=== PATIENT | female | born 1965 | race Caucasian/White ===

== ENCOUNTER 2018-10-08 01:50 | Outpatient (CLI) | payer BC, SELFPAY ==
--- NOTE | 2018-10-08 15:51 | DI.US_ITS ---
SYMPTOM/DIAGNOSIS: RT THYROID NODULE, E04.1 THYROID ULTRASOUND: The study was carried out according to the usual protocol. The right thyroid lobe measures 4.2 by 1.2 by 1.1 cm. The left thyroid lobe measures 3.6 by 0.9 by 1.1 cm. There is a question regarding a very small colloid cyst involving the right thyroid lobe measuring 3 by 2 by 3 mm. Note is made of no abnormality in the region of the patient's pain and swelling.
[2018-10-08 16:25] LABS: Abs Immature Grans 0.01 k/cumm (0.0-0.09); Absolute Basophil Count 0.03 k/cumm (0.0-0.2); Absolute Eosinophil Count 0.07 k/cumm (0.0-0.7); Absolute Lymphocyte Count 2.21 k/cumm (1.2-3.4); Absolute Monocyte Count 0.52 k/cumm (0.11-0.7); Basophils % 0.5; Eosinophils % 1.1; HGB 13.9 g/dL (12.0-15.5); Immature Grans % 0.2; Mean Corp. HGB Concentration 33.1 g/dL (32.0-36.0); Mean Corpuscular Hemoglobin 29.4 pg (27.0-33.0); Mean Corpuscular Volume 88.8 fL (80-95); Mean Platelet Volume 11.1 fL (8.0-11.0); Monocytes % 8.5; Neutrophils % 53.7; Platelet Count 256 x1000/uL (130-400); RBC 4.73 m/cumm (4.00-5.20); RBC Distribution Width 12.9 % (11.7-14.6); White Blood Cell Count 6.14 k/cumm (4.4-10.8)
[2018-10-08 17:17] LABS: Iron 57 ug/dL (50-175)
[2018-10-08 17:28] LABS: Cholesterol 179 mg/dL (50-200); HDL Cholesterol 65 mg/dL (40-60); LDL CHOLESTEROL 91 mg/dL (<100); TSH (W/Ref FT4) 1.25 uIU/mL (0.358-3.74); Triglyceride 120 mg/dL (30-150)
== END 2018-10-08 02:10 ==
PROVIDERS: PCP Family Medicine; Visit Provider Family Medicine
DX: Z00.00 Encounter for general adult medical examination without abnormal findings (principal); E04.1 Nontoxic single thyroid nodule; D64.9 Anemia, unspecified; R23.8 Other skin changes
CPT/HCPCS: 36415; 80061; 83721; 76536; 83540; 84443; 85025

== ENCOUNTER 2021-06-16 02:40 | Outpatient (CLI) | payer OTHER, SELFPAY ==
--- NOTE | 2021-06-16 12:05 | DI.MAMMO_ITS ---
Exam(s) MAMMO SCREENING EXAM: MAMMO SCREENING CLINICAL HISTORY: screening,Z12.39 TECHNIQUE: Bilateral full field digital CC and MLO mammographic images were obtained with 3D tomosyn thesis and utilizing computer aided detection (CAD). COMPARISON: Available for comparison. FINDINGS: Masses/Architectural Distortion: None seen. Microcalcifications: No suspicious pleomorphic-type are seen. Skin Thickening/Nipple Retraction: None. IMPRESSION: 1. No significant interval change with no specific features of malignancy noted. 2. Unless there is more urgent need, screening mammography is recommended, as per [employer] guidelines. BI-RADS Category 1 - Negative Breast Density - Category C - Heterogeneously dense Breast density category C or D implies that the patient has dense breast tissue. Dense breast tissue is very common and is not abnormal but dense breast tissue can make it harder to find cancer on a ma mmogram. Also, dense breast tissue may increase their breast cancer risk. This information about the result of the mammogram report was provided to the patient to raise their awareness. Use this report when you speak with the patient about their risks for breast cancer, which includes their family hist ory. At that time, you may recommend for more screening tests (Ultrasound or MRI) as they might be us eful based on their risk. A negative radiographic report should not delay biopsy if a dominant or clinically suspicious mass is present. Up to ten percent of cancers are not identified on mammography. A negative report may reinforce clinical impression. Adenosis and dense breasts may obscure an underlying neoplasm. False positive reports average 6 to 10%. Patient will receive a letter notifying them of these results.
== END 2021-06-16 03:00 ==
PROVIDERS: PCP Family Medicine; Visit Provider Family Medicine
DX: Z12.31 Encounter for screening mammogram for malignant neoplasm of breast (principal)
CPT/HCPCS: 77063; 77067

== ENCOUNTER 2022-04-04 01:10 | Outpatient (CLI) | payer OTHER, SELFPAY ==
--- OUTSIDE RECORDS SUMMARY | 2022-04-04 01:14 | XMS_ITS | Encounter Summary ---
:1965 Author Organization [facility] Address [address] [place] [address] Care Team Providers Name Role Phone Unavailable Primary Care Provider Unavailable Encounter Details Date Type Department Care Team Description 10/25/2008 Before PRISM [facility] - Mya Garza, Converted Visit Yenni albarado MD (Yenni) 111 [facility] [address] [place] [address] [place] [phone] (Wo rk) Social History Tobacco Use Types Packs/Day Years Used Date Never Assessed Sex Assigned at Date Recorded Not on file documented as of this encounter Plan of Treatment Not on filedocumented as of this encounter Procedures Procedure Name Priority Date/Time Associated Comments Diagnosis HPV DETECTION, HIGH Routine 10/25/2008 10:22 Resu lts for this RISK TYPES EST procedure are i n the results section. CYTOPATHOLOGY Routine 10/25/2008 0:00 Results for this EST procedure are i n the results section. documented in this encounter Results HUMAN PAPILLOMA VIRUS DNA TEST (10/25/2008 10:22 EST) Specimen Description Cervix, ThinPrep [facility] vial Result Negative for HPV [facility] types 16, 18, 31, 33, 35, 39, 45, 51, 52, 56, 58, 59, and 68. Report Status Final [facility] 11/04/2008 Specimen Performing Organization Address City/State/ZIP Code Phon e Number [facility] [address] [place] [address] SERVICES [facility] [address] [place] [address] CYTOPATHOLOGY (10/25/2008 0:00 EST) Pathology Report: CYTOPATHOLOGY REPORT ? TRAN ALL EN ? LAB Reports generated via Zenedyic interface contain original data; ? however they are lacking the format of the original report. ? Caution should be taken when reading/interpreting unformatted reports. ? Name: ? LORAINE KRUSE ? Accession #: ? [id number] ? : ? 1965 (Age: 43) ??F ?Collect Date: ? 10/25/2008 ? Location: ? [facility] ? Receive Date: ? 10/26/2008 ? Provider: ?MYA M DO BBERTIN MD ? Copy to: ? Specimen/Source: ? Pap Test, Cervix/Endocervix, ThinPrep Imaging System ? with manual evaluation ? Last Menstrual Period: ? 1/27/09 ? Other: ? HPVDX - HPV testing requeste d regardless of diagnosis on current ThinPrep Pap ?? test. ? SPECIMEN ADEQUACY ? Satisfactory for Eval uation ? - transformation zone compon ent present ? GENERAL CATEGORIZATION ? Negative for Intraepi thelial Lesion or Malignancy ? Document reviewed and electr onically signed by: ? Lynan Hector, CT(ASCP) ? Report Date: ??02/16/ 2009 15:38 ? End of Report ? Specimen Performing Organization Address City/State/ZIP Code Phon e Number [facility] [address] [place] [address] SERVICES [facility] [address] [place] [address] documented in this encounter Visit Diagnoses Not on filedocumented in this encounter
--- OUTSIDE RECORDS SUMMARY | 2022-04-04 01:14 | XMS_ITS | Encounter Summary ---
:1965 Author Organization [facility] Address [address] [place] [address] Care Team Providers Name Role Phone Unavailable Primary Care Provider Unavailable Encounter Details Date Type Department Care Team Description 06/23/2012 Results Only [facility] Gege Garza MD Laboratory Services - [address] [place] [address] [address] [place] [phone] (Wo rk) Social History Tobacco Use Types Packs/Day Years Used Date Never Assessed Sex Assigned at Date Recorded Not on file documented as of this encounter Plan of Treatment Not on filedocumented as of this encounter Procedures Procedure Name Priority Date/Time Associated Diagnosis Comme nts PAP TEST- RESULT Routine 06/23/2012 0:00 EDT Resu lts for this ONLY procedure are i n the results section. documented in this encounter Results PAP TEST- RESULT ONLY (06/23/2012 0:00 EDT) Pathology Report: CYTOPATHOLOGY REPORT [facility] Reports generated via electronic interface contain chloe ginal data; however they are lacking the format of the original re port. Caution should be taken when reading/interpreting unfo rmatted reports. Name: ? LORAINE KRUSE ? Accession #: ? [id number] ? : ? 1965 (Age: 47) ??F ?Collect Da te: ? 06/23/2012 ? Location: ? [facility] ? Receive Date: ? 012 ? Provider: CARLOS GARZA MD Copy to: ? Final Report SPECIMEN ADEQUACY ? Satisfactory for Evaluation - transformation zone component absent GENERAL CATEGORIZATION ? Negative for Intraepithelial Lesion or Malignan cy ?? Last Menstural Period: 06/01/12 Specimen/Source: ??Pap Test, Cervix/Endocervix, ThinPr ep Imaging System with manual evaluation Document reviewed and electronically signed by: ? Constantine Alvarenga, CT(ASCP) ? Report ??Date: 06/27/2012 13:19 HPV with Pap Test ? Date Ordered: ? 06/27/2012 ? Status: ?? Signed Out ?Date Complete: ? 07/01/2012 ? By: ??S ystem Interface ? Date Reported: ? 07/01/2012 ? Interpretation RESULT: Negative for HPV. No E6 or E7 mRNA is detected from HPV types 16,18,31,3 3,35, 39,45,51,52,56,58,59,66, and 68 by metal building assembler media raphael amplification. Comments Document reviewed and electronically signed by: ? System Interface ? Report date: 07/01/2012 By the signature above, the attending physician certif ies that he/she has personally conducted a gross and/or microscopic examin ation of the described specimens and rendered or confirmed the above diagnosi s. End of Report Specimen Performing Organization Address City/State/ZIP Code Phon e Number [facility] [address] [place] [id number] SERVICES [facility] [address] [place] [address] documented in this encounter Visit Diagnoses Not on filedocumented in this encounter
--- OUTSIDE RECORDS SUMMARY | 2022-04-04 01:14 | XMS_ITS | Encounter Summary ---
:1965 Author Organization [facility] Address [address] [place] [address] Care Team Providers Name Role Phone Unavailable Primary Care Provider Unavailable Encounter Details Date Type Department Care Team Description 12/24/2006 Results Only [facility] - Mya Garza MD [facility] [address] [facility] [address] [place], [place] [id number] [place] [phone] (Wo rk) Social History Tobacco Use Types Packs/Day Years Used Date Never Assessed Sex Assigned at Date Recorded Not on file documented as of this encounter Plan of Treatment Not on filedocumented as of this encounter Procedures Procedure Name Priority Date/Time Associated Diagnosis Comme nts CYTOPATHOLOGY Routine 12/24/2006 0:00 EDT Results for this procedure are i n the results section . documented in this encounter Results CYTOPATHOLOGY (12/24/2006 0:00 EDT) Pathology Report: CYTOPATHOLOGY REPORT [facility] Reports generated via electronic interface contain chloe ginal data; however they are lacking the format of the original re port. Caution should be taken when reading/interpreting unfo rmatted reports. Name: ? LORAINE KRUSE ? Accession #: ? [id number] : ? 1965 (Age: 41) ??F ?Collect Date: ? 12/15 Location: ? [facility] ? Receive Date : ? 12/26/2006 Provider: ?MYA GARZA MD Copy to: ? Specimen/Source: ?ThinPrep Pap Test, E ndocervix, processed on Awdio ThinPrep Imaging System, with manual evaluation Last Menstrual Period: ? 12/11/06 Other: ? HPVA - HPV testing requested if ASC-US on the current ThinPrep Pap test. ? SPECIMEN ADEQUACY ? Satisfactory for Evaluation - transformation zone component absent GENERAL CATEGORIZATION ? Negative for Intraepithelial Lesion or Malignan cy ? Document reviewed and electronically signed by: ? Guerda Jones, CHELSEA(ASCP)(IAC) ? Report Date: ??12/27/2006 16:41 End of Report Specimen Performing Organization Address City/State/ZIP Code Phon e Number [facility] [address] [place] [address] SERVICES [facility] [address] [place] [address] documented in this encounter Visit Diagnoses Not on filedocumented in this encounter
--- OUTSIDE RECORDS SUMMARY | 2022-04-04 01:14 | XMS_ITS | Encounter Summary ---
:1965 Author Organization [facility] [place] [address] Care Team Providers Name Role Phone Mya Garza MD Primary Care Provider Reason for Visit Reason Comments Post Op LAPAROSCOPY, HYSTERECTOMY Encounter Details Date Type Department Care Team Description 11/22/2014 Office Visit Obstetrics and Sameer Gallegos, Post-op erative state; [place] [facility] [place] Garcia MD Uterine leiomyoma, unspecified location [facility] [address] [place] OBSTETRICS & [phone] GYNECOLOGY [phone] [place], [place] [address] (Wo rk) Social History Tobacco Use Types Packs/Day Years Used Date Never Smoker Smokeless Tobacco: Never Used Alcohol Use Standard Drinks/Week Comments Not Asked 0 (1 standard drink = 0.6 oz pure alcoho l) Sex Assigned at Date Recorded Not on file documented as of this encounter Last Filed Vital Signs Vital Sign Reading Time Taken Comments Blood Pressure 128/94 11/22/2014 9:38 AM EDT Pulse - - Temperature - - Respiratory Rate - - Oxygen Saturation - - Inhaled Oxygen Concentration - - Weight 71.3 kg (157 lb 3.2 oz) 11/22/2014 9:38 AM EDT Height - - Body Mass Index 26.16 10/04/2014 11:00 AM EST documented in this encounter Progress Notes Shirley Cervantes MD - 11/22/2014 9:52 AM EDT REPRODUCTIVE MEDICINE POST OPERATIVE EVALUATION Problem List: S/P Robotic assisted total laparoscopic hysterectomy with bilateral salpingectomy Subjective: Ms. Francois is a 49 y.o. who returns for a routine post operative visit today. Her recovery has been unremarkable. Loraine had the flu last week, but otherwise she has been feeling well. She has had some sensation of pressure - on her bladder plus at the end of the day she feels a pressure on her stomach and diffusely in her pelvis. States that it feels like she has been stretched. She is now taking ibuprofen off and on and overall feels like her pain is well-controlled. Loraine was having some itching around the two most lateral right port sites, but feels like her claritin has helped with that issue. 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 She has been trying to do kegel exercises when she voids.She denies incontinence, hesitancy. The pressure she experiences in her bladder is relieved by voiding. She has regular bowel movements but has felt a little constipated and hasn???t had a bowel movement since Saturday. She hasn???t been taking anything for that as she was having some loose stools whileshe had the flu. She has returned to work without difficulty. Objective: BP 128/94 Wt 71.305 kg (157 lb 3.2 oz) LMP 05/12/2014 General: NAD, presents unaccompanied CV: RRR, nml s1/s2 Pulm: CTAB, no wheezes/crackles Abd: 5 port sites visualized and healing well. No induration or erythema. Pelvic exam: External genitalia is without lesions, Bartholin's and [place]'s glands are unremarkable.Speculum exam: physiologic discharge present, vaginal cuff appears intact with a couple sutures still visible. Bimanual exam: cuff intact without dehiscence; palpated sutures. Pathology benign and results reviewed with the patient. Uterus (hysterectomy): 1. Multiple leiomyomas. 2. Adenomyosis. 3. Small benign endocervical polyp. 4. Bilateral benign fallopian tube segments. A: 1.) Normal post operative course 2.) Benign Pathology I reviewed the surgery in detail with the patient. We reviewed the findings at the time of surgery. Recommendations: - The patient will no longer need cervical cancer screening. She may return to Dr. Vazquez for follow-up - She should continue to abstain from sexual intercourse until she is 8 weeks post-op. - Skin irritation from glue/dressing; may try topical hydrocortisone or benadryl cream - The pressure in her bladder may be related to spasms and the patient was advised to try timed voids or not waiting as long between voids. Patient was seen and evaluated with LELAND Garcia attending. Elizabeth Lamb MD PGY2 I have seen the patient and reviewed the resident's above history and I agree with the details as written. The assessment and plan were formulated in discussion with me and I agree with them as documented. Pertinent History: S/P robotic hysterectomy for benign fibroids and adenomyosis Pertinent Exam: I was present and examined the patient with the resident doctor Major issues addressed: Findings at the time of surgery, anticipated post op changes and recovery. Await intercourse heavy lifting for 8 weeks To observe for changes in urinary system to resolution, call with a worsening or no progression to normal Plan: As above 11/22/2014 documented in this encounter Plan of Treatment Not on filedocumented as of this encounter Visit Diagnoses Diagnosis Post-operative state Other postprocedural status Uterine leiomyoma, unspecified location documented in this encounter Care Teams Prosthetic Makeup Designer Relationship Specialty Start Date End Date Mya Garza MD PCP - General 08/08/[address] [place] [address] [address] [place] [address] documented as of this encounter
--- OUTSIDE RECORDS SUMMARY | 2022-04-04 01:14 | XMS_ITS | Encounter Summary ---
:1965 Author Organization [facility] Address [address] [place] [address] Care Team Providers Name Role Phone Unknown, Provider Primary Care Provider Encounter Details Date Type Department Care Team Description 09/30/2017 Hospital Encounter [facility] Unknown, Provider, [facility] 0 [facility] [phone] [place] [address] (Work) [phone] Social History Tobacco Use Types Packs/Day Years Used Date Never Assessed Sex Assigned at Date Recorded Not on file documented as of this encounter Discharge Disposition Disposition Code Departure Means Destination Home or Self [facility] documented in this encounter Plan of Treatment Not on filedocumented as of this encounter Visit Diagnoses Not on filedocumented in this encounter Care Teams Blade Filer Relationship Specialty Start Date End Date Unknown, Provider, PCP - General 08/08/15 10/01/17 documented as of this encounter
--- OUTSIDE RECORDS SUMMARY | 2022-04-04 01:14 | XMS_ITS | Encounter Summary ---
:1965 Author Organization [facility] [place] [address] Care Team Providers Name Role Phone Mya Garza MD Primary Care Provider Encounter Details Date Type Department Care Team Description 10/15/2014 Telephone [place]st[place]s [place] [facility] [place] [phone] Social History Tobacco Use Types Packs/Day Years Used Date Never Smoker Smokeless Tobacco: Never Used Alcohol Use Standard Drinks/Week Comments Not Asked 0 (1 standard drink = 0.6 oz pure alcoho l) Sex Assigned at Date Recorded Not on file documented as of this encounter Miscellaneous Notes Telephone Encounter - Tristian Newman RN - 10/15/2014 10:25 AM EST Message left. Post op call. Will attempt to reach on Saturday. documented in this encounter Plan of Treatment Not on filedocumented as of this encounter Visit Diagnoses Not on filedocumented in this encounter Care Teams Superintendent Terminal Relationship Specialty Start Date End Date Mya Garza MD PCP - General 08/08/[address] [place] [address] documented as of this encounter
--- OUTSIDE RECORDS SUMMARY | 2022-04-04 01:14 | XMS_ITS | Clinical Summary ---
:1965 Author Organization [facility] [place] [address] Care Team Providers Name Role Phone Mya Garza MD Primary Care Provider Allergies Active Allergy Reactions Severity Noted Date Comments Cefaclor Hives Low Medications Medication Sig Dispensed Refills Start Date End Date Status multivitamin Take by mouth 0 Act darren Pwtc-Gg-AY-Min daily. (THERAPEUTIC-M) 27-0.4 mg Tablet Magnesium 250 mg Tablet Take by mouth 0 Active daily. ibuprofen Take 1 tablet by 60 tablet 1 10/12/2014 Ac tive (ADVIL;MOTRIN) 600 mg mouth every 6 Tablet hours. loratadine (CLARITIN) Take 10 mg by 0 Active 10 mg Tablet mouth daily. Active Problems Problem Noted Date Post-operative state 11/22/2014 Fibroids 06/11/2014 Anemia Fatigue Transfusion history Corneal dystrophy Immunizations Name Administration Dates Next Due Td, adult 12/16/2003 Family History Medical History Relation Comments Hypertension Mother Relation Status Comments Father Alive Mother Alive Sister Alive Social History Tobacco Use Types Packs/Day Years Used Date Never Smoker Smokeless Tobacco: Never Used Alcohol Use Standard Drinks/Week Comments Not Asked 0 (1 standard drink = 0.6 oz pure alcoho l) Sex Assigned at Date Recorded Not on file Last Filed Vital Signs Vital Sign Reading Time Taken Comments Blood Pressure 128/94 11/22/2014 9:38 AM EDT Pulse 67 10/12/2014 8:14 AM EST Temperature 37 ??C (98.6 ??F) 10/12/2014 5:57 AM EST Respiratory Rate 19 10/12/2014 5:57 AM EST Oxygen Saturation 100% 10/12/2014 8:14 AM EST Inhaled Oxygen Concentration - - Weight 71.3 kg (157 lb 3.2 oz) 11/22/2014 9:38 AM EDT Height 165.1 cm (5' 5) 10/04/2014 11:00 AM EST Body Mass Index 26.16 10/04/2014 11:00 AM EST Plan of Treatment Health Maintenance Due Date Last Done Comments Covid-19 Vaccine (#1) 1972 HIV screen 1985 Hepatitis C Screening 1985 Tdap adult 1986 HPV test 1997 PAP Smear 1997 Breast Cancer Share Decision Needed 2007 Colonoscopy 2012 Tetanus vaccine 12/15/2013 12/16/2003 Breast Cancer screening 2017 Zoster vaccine (1 of 2) 2017 Advance Directive 2022 Influenza (Flu) vaccine (1 of 1 - Influenza standard 05/17/2022 series) Advance Directives Latest Code Status on File Code Status Date Activated Date Inactivated Comments Full Code 10/11/2014 11:39 AM 10/12/2014 1:42 PM Order Status: Initial Order Does patient have decision making capacity? Yes, Order is based on Patients wishes. Full Code 10/11/2014 6:16 AM 10/11/2014 11:39 AM Care Teams Organ Pipe Voicer Relationship Specialty Start Date End Date Mya Garza MD PCP - General 08/08/[address] [place] [address] [address] [place] [address]
--- OUTSIDE RECORDS SUMMARY | 2022-04-04 01:14 | XMS_ITS | Encounter Summary ---
:1965 Author Organization [facility] [place] [address] Care Team Providers Name Role Phone Mya Garza MD Primary Care Provider Encounter Details Date Type Department Care Team Description 10/11/2014 - Hospital Encounter Short Stay Unit at [facility], 10/12/2014 Erika Garcia MD [facility] [place] [facility] [place], [place] GYNECOLOGY [address] [place] [address] [phone] (Wo rk) Social History Tobacco Use Types Packs/Day Years Used Date Never Smoker Smokeless Tobacco: Never Used Alcohol Use Standard Drinks/Week Comments Not Asked 0 (1 standard drink = 0.6 oz pure alcoho l) Sex Assigned at Date Recorded Not on file documented as of this encounter Last Filed Vital Signs Vital Sign Reading Time Taken Comments Blood Pressure 103/60 10/12/2014 8:14 AM EST Pulse 67 10/12/2014 8:14 AM EST Temperature 37 ??C (98.6 ??F) 10/12/2014 5:57 AM EST Respiratory Rate 19 10/12/2014 5:57 AM EST Oxygen Saturation 100% 10/12/2014 8:14 AM EST Inhaled Oxygen Concentration - - Weight - - Height - - Body Mass Index - - documented in this encounter Discharge Summaries Barb Edwards MD - 10/12/2014 8:53 AM EST Images from the original note were not included. Discharge Summary Patient Name: Loraine Francois Patient Age: 49 y.o. Language: [place] Citizen Race: White Ethnicity: Not nor Admit date: 10/11/2014 Discharge date and time: 10/12/2014 Attending Physician: Denise Cervantes Discharge Physician: Denise Cervantes Follow-up Recommendations for Providers: -follow up with Dr. Dior 11/22/2014 Inpatient Provider Contact Information: [facility] - After hours / weekends - and ask for the scrape gatherer information [employer] Discharge Diagnoses (Hospital Problems) and Secondary Diagnoses (Chronic Problems): Active Hospital Problems Diagnosis ??? Fibroids Resolved Hospital Problems Diagnosis Date Resolved No resolved problems to display. Active Non-Hospital Problems Diagnosis ??? Anemia ??? Fatigue ??? 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 2.) Bilateral salpingectomy. 3.) Lysis of adhesions. History of Presentation: Ms. Francois is a 49 y.o. para 2 (C/S x 2) woman who presents for her preoperative examination. Patient with history of a left sided myoma with extension into the broad ligament, menorrhagia and LLQ pain Please see prior encounter notes for more detail. Hospital Course: Loraine Francois was admitted through Same Day Surgery and underwent the above procedures for menorrhagia and fibroid uterus without complication. EBL was 25cc. Findings were notable for: Anterior left myoma, ~ 12 week sized fibroid uterus, s/p tubal ligation, normal ovaries, minimal endometriosis Postop eratively the patient was taken to PACU and on POD #0 was transferred to the floor. Post operative course was uncomplicated. She was able to tolerate a regular diet and ambulate without difficulty. Osorio catheter was removed on POD#1 and pt was able to void without issue. Her H/H dropped slightly more than expected from 14.2/41.8 --> 12.5/36.6 which was likely due to hemodilution.Her vital signs remained stable and she has no signs of active bleeding. Her pain was well-controlled on oral medications by the time of discharge. She was discharged home on POD #1 in stable condition. Vital signs at Discharge: BP: 103/60 mmHg, Heart Rate: 67, Temp: 37 ??C (98.6 ??F), Resp: 19, Functional and Cognitive status: Intact and ambulatory. Important Studies and Lab Data: Recent Labs 10/12/14 025 WBC 10.6* HGB 12.5 HCT 36.6 PLATELET 227 Recent Labs 10/12/14 025 NA 139 K 3.8 CL 101 CO2 27 BUN 7* CREATININE 0.73 Recent Labs 10/12/14 025 CALCIUM 8.6 Ma.71 Studies: None Pending Studies and Lab Data: Final pathology pending Discharge Conditions/Prognosis: Stable Discharge to: Home Updated Allergies/ADRs: Allergies Allergen Reactions ??? Cefaclor Hives Immunizations Given this Hospitalization: Immunization History Administered Date(s) Administered ??? Td, adult 12/16/2003 Discharge Medications: Your Medications New Medications Dose Details docusate sodium 100 mg Cap Commonly known as: COLACE Take 1 capsule by mouth 2 times daily for 10 days. 100 mg Quantity: 20 capsule Refills: 0 oxyCODONE 5 mg Tab Commonly known as: ROXICODONE Take 1 tablet by mouth every 3 hours as needed for Pain (mild to moderate pain (1-6)). 5 mg Quantity: 30 tablet Refills: 0 Continued medications with new dosing Dose Details ibuprofen 600 mg Tab Commonly known as: ADVIL;MOTRIN Take 1 tablet by mouth every 6 hours. What changed: See the new instructions. 600 mg Quantity: 60 tablet Refills: 1 Continued medications, unchanged Dose Details Magnesium 250 mg Tab Take by mouth daily. Refills: 0 multivitamin Wmcl-Yr-WF-Min 27-0.4 mg Tab Commonly known as: THERAPEUTIC-M Take by mouth daily. Refills: 0 STOPPED Medications FATOU-SEQUELS ORAL ferrous sulfate 325 mg (65 mg iron) Tab Smoking Status at Discharge: History Smoking status ??? Never Smoker Smokeless tobacco ??? Never Used Instructions Given to Patient at Discharge: Patient Instructions PATIENT DISCHARGE INSTRUCTIONS Future Appointments Provider Department Dept Phone 11/22/2014 10:00 AM Denise Cervantes MD Obstetrics and Gynecology [phone] Contact information: [facility] - After hours / weekends - and ask for the scrape gatherer information [employer] Call your doctor if you develop: --A fever over 101 degrees --Severe pain --Heavy vaginal bleeding --Increasing pain, redness, or discharge at your incision --It is normal to have light spotting from the vagina for up to 3 weeks following hysterectomy Activity level: No heavy lifting, pushing or pulling for 6 weeks. No sexual intercourse, no tampons,nothing in the vagina for 8 weeks. Diet: You may resume your regular diet. Be sure you drink plenty of fluids. Please use colace one tablet twice daily for the entire time that you are taking pain medication to keep your bowel movementssoft and regular. If you are constipated or have not had a bowel movement in 3 days, please use milkof magnesia (or miralax) as directed over the counter. Driving: Do not drive until you are off of all narcotic medications and you are not feeling pain; usually about 2 weeks. Shower/Bath: Showering is fine. Short baths are OK but you should avoid having any abdominal incision submerged for more than 10-15 minutes for the next 2 weeks. Wound Care: Your incisions are closed with dissolvable stitches and surgical glue. The glue will dissolve on its own over time - do not pick at or rub the glue. The stitches do not need to be removed -they will dissolve on their own. Pain medications include oxycodone and motrin ??? Please use motrin 600 mg every 6 hours with food around the clock for the next several days and then after that use it only as needed. ??? Please use the oxycodone every 4-6 hours as needed for pain that breaks through the motrin. ??? You may take Tylenol over the counter as prescribed. Do not exceed 3000mg of Tylenol in any 24 hour period. General Instructions None Future Appointments Provider Department Dept Phone 11/22/2014 10:00 AM Denise Cervanets MD Obstetrics and Gynecology [phone] Discharge References/Attachments None Provider Contact Information: MYA GARZA MD [phone] documented in this encounter Discharge Instructions Patient InstructionsBarb Edwards MD - 10/11/2014 11:27 AM EST Images from the original note were not included. PATIENT DISCHARGE INSTRUCTIONS Future Appointments Provider Department Dept Phone 11/22/2014 10:00 AM Denise Cervantes MD Obstetrics and Gynecology [phone] Contact information: [facility] - After hours / weekends - and ask for the scrape gatherer information [employer] Call your doctor if you develop: --A fever over 101 degrees --Severe pain --Heavy vaginal bleeding --Increasing pain, redness, or discharge at your incision --It is normal to have light spotting from the vagina for up to 3 weeks following hysterectomy Activity level: No heavy lifting, pushing or pulling for 6 weeks. No sexual intercourse, no tampons,nothing in the vagina for 8 weeks. Diet: You may resume your regular diet. Be sure you drink plenty of fluids. Please use colace one tablet twice daily for the entire time that you are taking pain medication to keep your bowel movementssoft and regular. If you are constipated or have not had a bowel movement in 3 days, please use milkof magnesia (or miralax) as directed over the counter. Driving: Do not drive until you are off of all narcotic medications and you are not feeling pain; usually about 2 weeks. Shower/Bath: Showering is fine. Short baths are OK but you should avoid having any abdominal incision submerged for more than 10-15 minutes for the next 2 weeks. Wound Care: Your incisions are closed with dissolvable stitches and surgical glue. The glue will dissolve on its own over time - do not pick at or rub the glue. The stitches do not need to be removed -they will dissolve on their own. Pain medications include oxycodone and motrin ??? Please use motrin 600 mg every 6 hours with food around the clock for the next several days and then after that use it only as needed. ??? Please use the oxycodone every 4-6 hours as needed for pain that breaks through the motrin. ??? You may take Tylenol over the counter as prescribed. Do not exceed 3000mg of Tylenol in any 24 hour period. documented in this encounter Medications at Time of Discharge Medication Sig Dispensed Refills Start Date End Date ibuprofen (ADVIL;MOTRIN) Take 1 tablet by 60 tablet 1 10/12 600 mg Tablet mouth every 6 hours. multivitamin Take by mouth daily. 0 Cqlp-Hu-OB-Min (THERAPEUTIC-M) 27-0.4 mg Tablet Magnesium 250 mg Tablet Take by mouth daily. 0 docusate sodium (COLACE) Take 1 capsule by 20 capsule 0 09/1710/21/2014 100 mg Capsule mouth 2 times daily for 10 days. oxyCODONE (ROXICODONE) 5 Take 1 tablet by 30 tablet 0 10/1111/22/2014 mg Tablet mouth every 3 hours as needed for Pain (mild to moderate pain (1-6)). documented as of this encounter Progress Notes Usha Dillon RN - 10/12/2014 4:22 PM EST Record reviewed and patient discussed with multidisciplinary team. No discharge needs identified at this time. CRC remains available as needed for coordination of care and discharge planning.Pt has arranged her own transportation at discharge. RN to review instructions, medications, activity and f/u appointment prior to discharge. Usha Dillon RN 10/12/2014 Barb Edwards MD - 10/12/2014 7:54 AM EST Gynecology -Progress Note ID: Loraine Francois is a 49 y.o. woman post operative day #1 s/p Robotic assisted total laparoscopic hysterectomy, bilateral salpingectomy and lysis of adhesions for fibroid uterus. EBL 25cc. Subjective: Loraine reports that her pain is well controlled with Toradol and tylenol with minimal oxycodone yesterday afternoon. She has soup and crackers without nausea or vomiting. Reports bilateral thigh pain isimproving. Her osorio catheter was removed this AM and she has voided spontaneously without any issues. + flatus/ no bm. She has ambulated in the hallway without issues. She denies chest pain, shortnessof breath, fever, chills. Objective: Vitals Last value Range last 24 hrs Temperature Temp: 37 ??C (98.6 ??F) Temp: [36.4 ??C (97.5 ??F)-37.2 ??C (99 ??F)] Heart Rate Heart Rate: 76 Heart Rate: [66-106] Blood Pressure BP: 98/54 mmHg BP: (96-121)/(49-77) Respiratory Rate Resp: 19 Resp: [8-20] SpO2 SpO2: 97 % SpO2: [92 %-100 %] Art BP BP (Arterial Line): -- Intake/Output Summary (Last 24 hours) at 10/12/14 0640 Last data filed at 10/12/14 0543 Gross per 24 hour Intake 3663.3 ml Output 3390 ml Net 273.3 ml UOP: 200-300cc/hr overnight. Physical Exam Gen: AAOx3, NAD, resting in bed. Cardio: RRR, no MRG Pulm: CTAB, no wheezes or crackles. Abd: soft, mildly tender to palpation. Incisions: 5 port site incisions with skin glue. C/D/I, mild bruising and redness surrounding. Ext: warm, well-perfused, no edema bilaterally, ICDs in place : no blood on jose-pad. Laboratory (Last 24 Hours): Pre op H/H: 14.2/41.8 Recent Labs 10/12/14 0250 WBC 10.6* HGB 12.5 HCT 36.6 PLATELET 227 Recent Labs 10/12/14 0250 NA 139 K 3.8 CL 101 CO2 27 BUN 7* CREATININE 0.73 Recent Labs 10/12/14 0250 CALCIUM 8.6 Ma.71 Assessment and Plan: Loraine Francois is a 49 y.o. woman post operative day #1 s/p above procedure foruterine fibroids and menorrhagia. Recovering well postoperatively. Please see system based plan below: Pain Control: -- adequate pain control with Toradol and tylenol. Transition to ibuprofen with oxycodone prn. Alertand oriented. Cardiac/Heme: -- Currently normotensive. Slightly low normal BP, but asymptomatic. -- Hemodynamically stable. Slightly more of a drop in H/H than expected from 14.2/41.8 --> 12.5/36.6. Likely due to hemodilution. No signs of active bleeding. Pulmonary: --adequate o2 sats on Room air. --incentive spirometry. Gastrointestinal: --Tolerating regular diet. --colace. --zofran prn nausea. Genitourinary: --adequate UOP Fluid/ Electrolytes: --Lytes wnl --D/c fluids this AM. Prophylaxis: --Nexium --Incentive spirometry. --ICDs. Disposition: --Plan for discharge home today after eating breakfast. Pt seen and discussed with LELAND Anaya Attending. Barb Edwards MD PGY3 10/12/2014 Ivett Patricia RN - 10/12/2014 6:27 AM EST 10/12/14 0615 Adult Vital Signs Heart Rate 76 Heart Rate Source Monitor BP 98/54 mmHg BP recheck sent to sustainability coach ,at pager [phone] Ivett Patricia RN - 10/12/2014 5:59 AM EST This am's labs had H+H was 14.2 and 41.8, now 12.5 and 36.6- this called to sustainability coach team at pager [phone] Ivett Patricia RN - 10/12/2014 12:23 AM EST Pt.' s peripad changed @ 0020 for small dark red vaginal drainage-This is the first peripad change since 1900.Pt. Did her deep breathing at this time and also ambulated 150 ft.pt. Lungs are clear bilat. Barb Edwards MD - 10/11/2014 4:10 PM EST Gynecologic Oncology - Post operative Progress Note ID: Loraine Francois is a 49 y.o. woman post operative day #0 s/p Robotic assisted total laparoscopic hysterectomy, bilateral salpingectomy and lysis of adhesions for fibroid uterus. EBL 25cc. Findings: Anterior left myoma, ~ 12 week sized fibroid uterus, s/p tubal ligation, normal ovaries, minimal endometriosis Subjective: Loraine reports that her pain is well controlled with Toradol, oxycodone and tylenol. She has tolerated sips of clear liquid without nausea or vomiting. Feels slightly lightheaded from the pain medication. Also complains of aching bilateral thigh pain that is similar to the pain she had with her deliveries. No lower extremity weakness or numbness. Her osorio catheter remains in place. She has not yet ambulated. She denies chest pain, shortness of breath, fever, chills. Physical Exam: Last value Range last 24 hrs Temperature Temp: 36.4 ??C (97.5 ??F) Temp: [36.4 ??C (97.5 ??F)-37.2 ??C (99 ??F)] Heart Rate Heart Rate: 85 Heart Rate: [66-85] Blood Pressure BP: 116/69 mmHg BP: (111-142)/(60-77) Respiratory Rate Resp: 16 Resp: [8-16] SpO2 SpO2: 99 % SpO2: [92 %-100 %] Art BP BP (Arterial Line): -- Intake/Output Summary (Last 24 hours) at 10/11/14 1610 Last data filed at 10/11/14 1300 Gross per 24 hour Intake 1898.3 ml Output 340 ml Net 1558.3 ml UOP: additional 400cc of yellow/orange urine in osorio bag over the last 3 hours not yet recorded in chart. Physical Exam Gen: AAOx3, NAD, resting in bed. at bedside. Cardio: RRR, no MRG Pulm: CTAB, no wheezes. Mild bibasilar crackles. Abd: soft, mildly tender to palpation. Incisions: 5 port site incisions with skin glue. C/D/I, mild bruising and redness surrounding. Ext: warm, well-perfused, no edema bilaterally, ICDs in place : Osorio catheter in place draining clear yellow urine. Laboratory (Last 24 Hours): Pre op H/H: 14.2/41.8 Labs pending for am. Assessment and Plan: Loraine Francois is a 49 y.o. woman post operative day #0 s/p above procedure foruterine fibroids and menorrhagia. Recovering well postoperatively. Please see system based plan below: Pain Control: -- adequate pain control with Toradol, tylenol, and oxycodone. Alert and oriented. Cardiac/Heme: -- Currently normotensive. -- Hemodynamically stable. Cbc pending for am. Pulmonary: --adequate o2 sats on 2 Liters nasal cannula oxygen. Wean to maintain saturation >92%. --incentive spirometry. Gastrointestinal: --Advance diet to regular as tolerated. --zofran prn nausea. Genitourinary: --adequate UOP --plan for removal of osorio catheter tomorrow AM. Fluid/ Electrolytes: --Lytes pending for AM. --LR at 100cc/hour. Prophylaxis: --Nexium --Incentive spirometry. --ICDs. Disposition: --Continues to require inpatient hospitalization. Likely discharge home tomorrow on POD#1. Pt seen and discussed with LELAND Anaya Attending. Barb Edwards MD PGY3 10/11/2014 Carmen Brar RN - 10/11/2014 1:35 PM EST Patient Name: Loraine Francois Patient Age: 49 y.o. Birthdate: 1965 Admit date: 10/11/2014 Attending Physician: Denise Cervantes* Pt arrivedfrom PACU in bed, sedated, arouses to voice, oriented x 4, reports pain as 2/10, lap sitesx 5 slightly bruised, well approximated, no drainage. Osorio intact and draining clear orange urine. Oriented to room and call light, bed alarm activated. Rama Wilde RN - 10/11/2014 12:19 PM EST 10/11@1215: Received report from the admitting nurse, RONAN John. VS stable. Pt groggy. Pt encouraged to rest. Surgical sites c/d/i. Will monitor. 1243: Pt reports annoying discomfort, but not real pain to the abdominal area. Patient is not overtly vocal about discomfort. Pt given dose of oral pain medication to provide prophylaxis for pain management. See NOV. 1248: at the bedside. 1306: Pt has met PACU discharge criteria. Pt being prepared for transfer to Short Stay room. documented in this encounter H&P Notes Sergio Orozco MD - 10/11/2014 6:33 AM EST Inpatient [employer] T[employer] WORK[employer] - Admission Interval Note I have reviewed the pre-procedure H&P completed by Dr. Dior on 10/04/2014. (X) Condition unchanged since H&P originally performed. Physical Exam: BP 142/76 Pulse 80 Temp(Src) 36.5 ??C (97.7 ??F) (Oral) SpO2 99% LMP: 10/04/2014 General: well-appearing, no acute distress CV: RRR, no murmurs/rubs/gallops Pulm: CTAB, no wheezes/crackles Abdomen: soft, nontender, nondistended, +BS Ext: nontender, symmetric in bilateral lower extremities Interval Note: Loraine presents in her usual state of health today and wishes to go ahead with plannedprocedure of robotic hysterectomy with salpingectomy, possible removal of ovary or ovaries due to symptomatic fibroid, menorrhagia, and pelvic pain. Plan to proceed to OR. A copy of this document will be sent to the patient's Primary Care Physician and/or Referring Physician. Sergio Orozco MD PGY1 10/11/2014 documented in this encounter Miscellaneous Notes Plan of Care - Dax León RN - 10/12/2014 11:28 AM EST Problem: General Plan of Care Goal: Plan of Care Review 10/12/143 Plan of Care Review Plan of Care Outcome Status outcome achieved Progress improving Coping/Psychosocial Response Interventions Plan of Care Reviewed with patient OUTCOME EVALUATION NOTE: OUTCOME SUMMARY: Achieved, pt DC to home with . Pt verbalizes understanding regarding DC teaching for lap hyst. Pt medicated with oxy prior to DC. Pt wheeled to [facility] by GISSELLE Dial. PLAN MOVING FORWARD: Dc today INDIVIDUALIZED FALL PREVENTION: Assistance: Standby Supervision: standby Surveillance: Purposeful rounding CPG GOAL OUTCOME EVALUATION: achieved Goal: Individualization and Mutuality 10/11/14 1343 10/12/14 0159 Individualization Patient Specific Goals advance diet, mobilize -- Patient Specific Interventions assess surgical sites, monitor I&O, pain management, fall prevention -- Mutuality/Individual Preferences What anxieties, fears or concerns do you have about your health or care? -- none What questions do you have about your health or care? -- none What information would help us give you more personalized care? -- none Goal: Fall Prevention-Safe Patient Handling 10/12/14 0021 10/12/14 0122 10/12/14 1035 Safety Interventions Safety Precautions/Fall Reduction -- fall reduction program maintained;lighting adjusted for task/safety;low bed;nonskid shoes/slippers when out of bed -- Miles Fall Risk History of Falling -- 0 -- Secondary Diagnosis -- 0 -- Ambulatory Aids -- 0 -- Intravenous Therapy/Heparin/Saline Lock -- 20 -- Gait/Transferring -- 0 -- Mental Status -- 0 -- Score -- 20 -- Activity and Safety Assistive Device Other (none) -- -- OTHER Miles Fall Risk -- Medium (25-44) (post-op, placed on medium fall risk) -- Musculoskeletal Interventions Activity/Level of Assistance -- -- up in gregg;up in room;ambulated;with 1-person assist Positioning HOB up 30 degrees -- -- Goal: Infection Control 10/12/14 1123 Safety Interventions Isolation Precautions standard precautions maintained Infection Prevention hydration promoted;promote handwashing Coping/Psychosocial Response Interventions Counseling emotional support provided Goal: Discharge Needs Assessment Outcome: Outcome (s) achieved Date Met: 10/12/14 10/12/14 112 Discharge Needs Assessment Concerns to be Addressed no discharge needs identified Readmission Within the Last 30 Days no previous admission in last 30 days Equipment Needed After Discharge none Current Health Anticipated Changes Related to Illness none Self-Care Equipment Currently Used at Home none Living Environment Transportation Available family or friend will provide Plan of Care - Ivtet Reynoso RN - 10/12/2014 2:07 AM EST Problem: General Plan of Care Goal: Plan of Care Review Outcome: Ongoing (Interventions Implemented as Appropriate) 10/12/14 0203 Plan of Care Review Plan of Care Outcome Status ongoing (interventions implemented as appropriate) Progress improving Coping/Psychosocial Response Interventions Plan of Care Reviewed with patient Goal: Individualization and Mutuality Outcome: Ongoing (Interventions Implemented as Appropriate) 10/11/14 1343 10/12/14 0159 Individualization Patient Specific Goals advance diet, mobilize -- Patient Specific Interventions assess surgical sites, monitor I&O, pain management, fall prevention -- Mutuality/Individual Preferences What anxieties, fears or concerns do you have about your health or care? -- none What questions do you have about your health or care? -- none What information would help us give you more personalized care? -- none Goal: Fall Prevention-Safe Patient Handling Outcome: Ongoing (Interventions Implemented as Appropriate) 10/12/14 0021 10/12/14 0122 Safety Interventions Safety Precautions/Fall Reduction -- fall reduction program maintained;lighting adjusted for task/safety;low bed;nonskid shoes/slippers when out of bed Miles Fall Risk History of Falling -- 0 Secondary Diagnosis -- 0 Ambulatory Aids -- 0 Intravenous Therapy/Heparin/Saline Lock -- 20 Gait/Transferring -- 0 Mental Status -- 0 Score -- 20 Activity and Safety Assistive Device Other (none) -- OTHER Miles Fall Risk -- Medium (25-44) (post-op, placed on medium fall risk) Musculoskeletal Interventions Activity/Level of Assistance up in gregg;ambulated;dangled at bedside;with stand by assist -- Positioning HOB up 30 degrees -- Goal: Infection Control Outcome: Ongoing (Interventions Implemented as Appropriate) 10/12/14 0203 Safety Interventions Isolation Precautions standard precautions maintained Infection Prevention bronchial hygiene promoted Coping/Psychosocial Response Interventions Counseling reassurance provided;goal setting facilitated Goal: Discharge Needs Assessment Outcome: Ongoing (Interventions Implemented as Appropriate) 10/12/14 0203 Discharge Needs Assessment Discharge Planning Comments stayed with pt. overnight:Couple live 2 hrs. away Living Environment Transportation Available family or friend will provide Comments: OUTCOME EVALUATION NOTE: OUTCOME SUMMARY: Pt. Has had a good night thus far-good u.o., good pain control,6 stab sites to abd. Without drainage.pt. Lungs clear, vitals stable.pt. Has ambulated oob. Pt.opal. Po.small red vaginal drainage PLAN MOVING FORWARD: Pt. To have am labs drawn. Pt. To have osorio d/c'd at 0500-once voiding independently, pt. Will havemet most d/c criteria. Pt. Has not yet passed flatus. INDIVIDUALIZED FALL PREVENTION: Assistance: oob with minimal assist with ADL's Supervision:oob with standby assist Surveillance: Shanthi,denverful rounding CPG GOAL OUTCOME EVALUATION: Plan of Care - Carmen Brar RN - 10/11/2014 1:43 PM EST Problem: General Plan of Care Goal: Plan of Care Review Outcome: Ongoing (Interventions Implemented as Appropriate) 10/11/14 1343 Plan of Care Review Plan of Care Outcome Status ongoing (interventions implemented as appropriate) Progress no change Coping/Psychosocial Response Interventions Plan of Care Reviewed with patient OUTCOME EVALUATION NOTE: OUTCOME SUMMARY: Pt remains sedated from surgery, easily arouseable, respirations shallow, O2 sat 99% on 2 liters nc. Denies pain, tolerates sips of water, osorio draining clear orange urine. atbedside. PLAN MOVING FORWARD: Advance diet and mobilize as tolerated, manage pain prn INDIVIDUALIZED FALL PREVENTION: Assistance: With ADL's prn Supervision: when oob Surveillance: Purposeful rounding and pulse oximetry CPG GOAL OUTCOME EVALUATION: Goal: Individualization and Mutuality Outcome: Ongoing (Interventions Implemented as Appropriate) 10/11/14 1337 10/11/14 1343 Individualization Patient Specific Goals -- advance diet, mobilize Patient Specific Interventions -- assess surgical sites, monitor I&O, pain management, fall prevention Mutuality/Individual Preferences What anxieties, fears or concerns do you have about your health or care? none -- What questions do you have about your health or care? none at this time -- Goal: Fall Prevention-Safe Patient Handling Outcome: Ongoing (Interventions Implemented as Appropriate) 10/11/14 1300 10/11/14 1324 Safety Interventions Safety Precautions/Fall Reduction -- bed alarm;fall reduction program maintained;nonskid shoes/slippers when out of bed Miles Fall Risk History of Falling -- 0 Secondary Diagnosis -- 15 Ambulatory Aids -- 0 Intravenous Therapy/Heparin/Saline Lock -- 20 Gait/Transferring -- 0 Mental Status -- 0 Score -- 35 OTHER Miles Fall Risk -- Medium (25-44) Musculoskeletal Interventions Positioning HOB up 15 degrees;HOB up 30 degrees -- Goal: Infection Control Outcome: Ongoing (Interventions Implemented as Appropriate) 10/11/14 1343 Safety Interventions Isolation Precautions standard precautions maintained Infection Prevention environmental surveillance;hydration promoted;nutrition promoted;promote handwashing;rest/sleep promoted Goal: Discharge Needs Assessment Outcome: Ongoing (Interventions Implemented as Appropriate) 10/11/14 1343 Discharge Needs Assessment Concerns to be Addressed no discharge needs identified Readmission Within the Last 30 Days no previous admission in last 30 days Current Health Anticipated Changes Related to Illness none Self-Care Equipment Currently Used at Home none Living Environment Transportation Available family or friend will provide Op Note - Denise Cervantes MD - 10/11/2014 10:47 AM EST [facility] [place] Patient Name: Loraine Francois : [id number] MR#: [id number] Case Date: 10/11/2014 Surgeon: Surgeon(s) and Role: * Denise Cervantes MD - Primary * Barb Edwards MD * Marlee Treviño MD - Fellow Preoperative diagnosis: menorrhagia, fibroids Postoperative diagnosis: menorrhagia, fibroids, minimal endometriosis Procedure(s): LAPAROSCOPY, HYSTERECTOMY, UTERUS<250GM, ROBOTIC ASSIST Lysis of adhesions Fulgeration of minimal endometriosis Anesthesia: General and local Estimated Blood Loss: 25 mL Specimens removed during surgery: Uterus and tubes Drains: Osorio 180 cc clear yellow urine Surgical Closure: Primary Closure - closure of ALL tissue levels during the original surgery regardless of wires, wickes, drains, or other devices extruding through the incision Disposition: awakened from anesthesia, extubated and taken to the recovery room in a stable condition, having suffered no apparent untoward event. Condition: doing well without problems (Please see the Surgical Encounter Summary for any Implant and Specimen details pertinent to this patient.) HPI/Surgical Indications: The patient is a 49 year old P2 with a hx of two prior deliverieswith a hx of menorrhagia, anemia and a known fibroid uterus. The patient also reported a hx of left lower quadrant pain. She was treated preoperatively with depo lupron with resolution of her anemia. She was counseled with regards to options for care and elected a hysterectomy with ovarian conservation should they appear normal. Procedure Description: Findings at the Time of the Procedure: On exam under anesthesia, she was noted to have approximate 12-13 week size myomatous uterus. She was noted to have normal external genitalia, normal vaginal mucosa, and normal cervix. The uterus sounded to 10 cm. On laparoscopic evaluation, she was noted to have a normal appendix and normal upper abdominal survey. She was noted to have an anterior left lower uterine segment myoma extendinginto the left broad ligament. A thick 3 cm band of omental adhesions were noted in the anterior LLQ, and adhesions to the left ovary to the sigmoid epiploica on the left. Minimal endometriosis was noted in several spots in the anterior, posterior, and left broad ligament. The ovaries were otherwise normal in configuration. The retroperitoneal space was noted to be indurated. Both fallopian tubes were noted to have been ligated. Procedure Performed: The patient was taken to the Operating Room with an IV running. Her identity was confirmed at the door. She underwent general endotracheal anesthesia. She received IV clindamycin and gentamicin as prophylaxis for the procedure. She was placed in a modified dorsal lithotomy position and a neurovascular-correct position with her arms tucked at her sides and her legs supported with Yellofins stirrups. Intermittent sequential compression boots were utilized during the course of the procedure. She underwent exam under anesthesia. Her abdomen, perineum, and vagina were prepped sterilely and draped in the usual sterile fashion for laparoscopic procedure. On preparation for the procedure, a Osorio catheter was placed in the bladder and affixed to closed-bag drainage. A V-Care Intrauterine device was placed without difficulty following placement of a weighted speculum into the vagina and a single tooth tenaculum applied to the cervix. Patient was placed in moderate Trendelenburg and noted not to slip on the operating table. A formal time-out procedure had been performed prior to placement of her Osorio catheter. A single puncture site was made in the lower margin of the umbilicus with the use of the knife, and a Veress needle was inserted with tension applied upward and upon the anterior abdominal wall into the umbilical incision directly into the peritoneal cavity without incident. Its position was assured to be in the peritoneal cavity with syringe filled with normal saline. The Veress needle was left in place as a slow pneumoperitoneum was created with low opening pressures to approximately 4 L of CO2 gas. The Veress needle was then removed. An incision made approximately 1.2 cm long vertically was made just superior into the right of the umbilicus. Utilizing a 10/11-mm EthiMaistorPlus Optiview trocar, the laparoscope was attached to its light and camera source; and the trocar was placed directly into the peritoneal cavity without incident. The patient was placed in moderate Trendelenburg. Two upper abdominal port sites were placed approximately 8 cm lateral to the umbilical port site and 15 degrees inferior. At all port sites, 1 to 2 mL of 0.25% plain Sensorcaine was used to infiltrate the skin and subcutaneous tissue. At the robotic sites in the right and left upper quadrants and the left lower quadrant, 7- to 8-mm incisions were made; and the robotic reusable ports were placed under direct visualization to the remote centers without incident. A disposable trocar for the continuous-insufflation device was placed in the right lower quadrant approximately 8 cm distal and inferior to the right upper quadrant port. This was placed under direct visualization without incident. The robot was then docked in its usual fashion without difficulty, and attention was turned to the surgical console. In the robotic arm number one, monopolar ike were utilized; in port number two, the fenestrated bipolar was utilized; and in number three, a tenaculum was utilized. The settings were 25 garza on the monopolar cautery device and a setting of 35 garza on the bipolar device. The procedure was completed similarly on the right and left sides. The utilization of port three for traction and countertraction as well as an assistance port during the course of the case was especially important while dissecting on the right side. The ureteral courses were noted, as they extended over the pelvic brim and to the pelvis without incident and along the pelvic sidewall. The band of adhesions between the anterior abdominal wall and the omentum was lysed sharply with endoscopic scissors under direct visualization close to the anterior abdominal wall. The remnant fallopian tubes were removed with sharp dissection with traction and counter traction with the robotic chidi forceps and the monopolar sheers. The uteroovarian was coagulated with the use of bipolar electrosurgical instrument and then sharply transected. T and the round ligament was coagulated at its proximal one third in three contiguous pedicles and sharply transected. The bladder flap was then created by retroverting the uterus, identifying the anterior broad ligament, and creating incision with the use of a single blade and then monopolar ike. The bladder was then dissected with blunt and sharp dissection with very little cautery utilized, just enough to maintain hemostasis. The bladder was noted to have a relatively large expanse over the anterior lower uterine segment secondary to the distention laterally of left side of the lower uterine segment fibroid that extended to the left broad ligament. The posterior peritoneum was identified and incised. The bladder flap was then further created to inferior along the anterior vaginal cuff to the palpable intravaginal anterior cup of theVCARE colpotomizer. At the level of the internal os, the uterine pedicle was coagulated in three separate pedicles with great care given to avoid the lateral margin of the bladder. It was sharply transected. The colpotomy was created in the posterior portion first with a clear bulge noted of the VCARE cup within the vagina transvaginally. Monopolar ike were used to find the upper inner aspect of the cup, and a 360-degree incision was made medial to the uterine artery pedicles. Again, great care was taken to avoid the bladder and make sure it was mobilized off the anterior surface. The uterus was then delivered through the vagina. It had to be morcellated in several pieces. The uterus including cervix was delivered through the vagina. Hemostasis was noted to be excellent. A continuous running stitch of locking 0 vicyl was utilized tore-approximate the bcsgeygn-bv-dxmdnxuzk vagina with great care taken to take a large enough pedicle posteriorly and to avoid the bladder anteriorly. Hemostasis was noted to be excellent. The Osorio was replaced. The pelvis was reinspected. Hemostasis was noted to be excellent. All operating instruments were removed from the patient's abdomen and then pelvis. The pneumoperitoneum was released. At the larger port sites, the fascia was reapproximated with a buynti-gu-nxzsq suture of 0 Vicryl; and a continuous subcuticular stitch was placed at the other port sites of 4-0 Vicryl. Sterile compressing dressings were applied. The patient was taken awake, alert, and extubated to Recovery Room in excellent condition. All counts that were performed were reported as correct. The estimated blood loss was 25 mL. She made approximately 180 mL of clear yellow urine at the end of the procedure. She received approximately 1700 mL of LR. Attestation: Case Date: 10/11/2014 I was present and I participated during the entire procedure (does not need to include opening and closing). Denise Melo MD 10/11/2014 Brief Op Note - Denise Cervantes MD - 10/11/2014 10:45 AM EST Brief Operative Note Patient Name: Loraine Farncois : [id number] MR#: [id number] Case Date: 10/11/2014 Surgeon: Surgeon(s) and Role: * Denise Cervantes MD - Primary * Barb Edwards MD * Marlee Treviño MD - Fellow Preoperative diagnosis: menorrhagia, fibroids Postoperative diagnosis: menorrhagia, fibroids, minimal endometriosis Procedure(s): LAPAROSCOPY, HYSTERECTOMY, UTERUS<250GM, ROBOTIC ASSIST, bilateral salpingectomy Lysis of adhesions Anesthesia: General Findings: Anterior left myoma, ~ 12 week sized fibroid uterus, s/p tubal ligation, normal ovaries, minimal endometriosis Complications: None apparent Fluids: 1700 cc Estimated Blood Loss: 25 mL Drains: 180 cc clear yellow urine Disposition: awakened from anesthesia, extubated and taken to the recovery room in a stable condition, having suffered no apparent untoward event. Condition: doing well without problems Attestation: Case Date: 10/11/2014 I was present and I participated during the entire procedure (does not need to include opening and closing). (Please see the Surgical Encounter Summary for any Implant and Specimen details pertinent to this patient.) documented in this encounter Plan of Treatment Not on filedocumented as of this encounter Procedures Procedure Name Priority Date/Time Associated Diagnosis Comme nts HEMOGRAM Routine 10/12/2014 2:50 AM Results f or this EST procedure are i n the results section. MAGNESIUM Routine 10/12/2014 2:50 AM Results f or this EST procedure are i n the results section. BASIC METABOLIC Routine 10/12/2014 2:50 AM Result s for this PANEL (NON-FASTING) EST procedur e are in the results section. ECG SCAN 10/12/2014 12:00 AM EST SURGICAL PATHOLOGY Routine 10/11/2014 10:12 AM Re sults for this REPORT EST procedure are i n the results section. SPECIMEN TO Routine 10/11/2014 10:06 AM Results for this PATHOLOGY EST procedure are i n the results section. LAPAROSCOPY, 10/11/2014 7:36 AM Menorrhagia HYSTERECTOMY, EST UTERUS<250GM, ROBOTIC ASSIST (WRVU 13.36) documented in this encounter Results Magnesium (10/12/2014 2:50 AM EST) P athologist Signature Magnesium 0.71 0.69 - 1.07 CERNER mmol/L MILLENNIUM Specimen Anatomical Collection Method Collection Time Receive d Time (Source) Location / / Volume Laterality Blood specimen 10/12/2014 2:50 AM 015 2:53 (specimen) EST AM EST Resulting Agency Comment Spec In Lab Denise Melo MD CHEMISTRY ORDERABLES Performing Organization Address City/State/[place] [address] CERNER MILLENNIUM (ABNORMAL) Basic Metabolic Panel (non-fasting) (10/12/2014 2:50 AM EST) athologist Signature Glucose Lvl 119 60 - 199 CERNER mg/dL MILLENNIUM Comment: Diabetes: >=200 mg/dL plus symp toms BUN 7 (L) 8 - 18 mg/dL CERNER MILLENNIUM Creatinine 0.73 0.70 - 1.20 mg/dL CERNER MILL ENNIUM Comment: Please note that the pediatric reference intervals supplied above were not validated [place] [facility] [place] Results from pediatri c patients should be interpreted in conjunction to the patient's age, height and muscle mass. Sodium 139 135 - 145 mmol/L CERNER MICHAEL NIUM Potassium 3.8 3.5 - 5.0 mmol/L CERNER MICHAEL NIUM Comment: Please note: ??Patients with WBC >100,00 0 may have falsely elevated Potassium levels. ??For accurate Potassium quantif ication in these patients send serum separator tube (gold top) for subsequent determinations. ??Contact the Clinical Chemistry Laboratory if there are any qu estions. Chloride 101 98 - 107 mmol/L CERNER MILLENN IUM CO2 27 22 - 31 mmol/L CERNER MILLENNI UM Anion Gap 11 5 - 15 mmol/L CERNER MILLENNIU M Calcium 8.6 8.5 - 10.5 mg/dL CERNER MICHAEL NIUM Estimated GFR >60 >=60 CERNER MILLENNIU M Comment: This estimated GFR (eGFR) value was calc ulated using the MDRD equation which has been validated on patients between t he ages of 18 and 70. The MDRD should not be used to assess kidney function in patients < 18 years of age or in patients with extremes of body mass, or in patients with acute kidney failure. This value should be multiplied by 1.2 f or patients. For further information please copy and past e the following links into your internet browser. http://Univa/DHnkdep http://Univa/DHnkf Specimen Anatomical Collection Method Collection Time Receive d Time (Source) Location / / Volume Laterality Blood specimen 10/12/2014 2:50 AM 015 2:53 (specimen) EST AM EST Resulting Agency Comment Spec In Lab Denise Melo MD CHEMISTRY ORDERABLES Performing Organization Address City/[facility]/ZIP Code Phon e Number [address] CERNER MILLENNIUM (ABNORMAL) Hemogram (10/12/2014 2:50 AM EST) P athologist Signature WBC 10.6 (H) 4.0 - 10.0 CERNER x10(3)/mcL MILLENNIUM RBC 4.13 3.93 - CERNER 5.22 MILLENNIUM x10(6)/mcL Hemoglobin 12.5 11.2 - CERNER 15.7 gm/dL MILLENNIUM Hematocrit 36.6 34.0 - CERNER 45.0 % MILLENNIUM MCV 88.6 79.0 - CERNER 94.0 fL MILLENNIUM MCH 30.3 26.6 - CERNER 32.2 pg MILLENNIUM MCHC 34.2 32.0 - CERNER 36.5 gm/dL MILLENNIUM Platelets 227 145 - 370 CERNER x10(3)/mcL MILLENNIUM RDWSD 43.2 35.0 - CERNER 46.0 fL MILLENNIUM RDWCV 13.4 10.9 - CERNER 14.4 % MILLENNIUM MPV 11.1 9.0 - 12.0 CERNER fL MILLENNIUM Specimen Anatomical Collection Method Collection Time Receive d Time (Source) Location / / Volume Laterality Blood specimen 10/12/2014 2:50 AM 015 2:53 (specimen) EST AM EST Resulting Agency Comment Spec In Lab Denise Melo MD HEMATOLOGY ORDERABLES Performing Organization Address City/[facility]/ZIP Code Phon e Number [address] CERNER MILLENNIUM SCAN DOC: ECG (10/12/2014 12:00 AM EST) Narrative This result has an attachment that is no t available. Scanning Provider MEDIA MGR SCAN EXT ORDR/RSLT Surgical Pathology Report (10/11/2014 10:12 AM EST) Component Value Ref Test Analysis Performed At Patholo gist Range Method Time Signature Surgical CERNER Pathology ? [facility] MILLENNIUM Report ? Provider: ?? CHRISTINA MELO, ??Pt. Name: ?? REINALDO LM, LORAINE ?DENISE ? Acc #: ?[id number] ?Pt. MRN: ?[id number] ? Col Date: ?? 5 ? /Sex: ?1965,(49 years),Female ? Rec Date: ?? 10/11/2014 ? LOC: ?[facility] ? SURGICAL PATHOLOGY ? ---Pathologic Diagnosis--- ? Uterus (hysterectomy): ?1. Multiple leiomyomas. ?2. Adenomyosis. ?3. Small benign endocervical polyp. ?4. Bilateral benign fallopian tube segments. ? CR-0 ? 10/12/14 ? [facility] ? 10/12/14 Verified by: ? Kyle RAMÍREZ, Juice Trevino. ? Pathologist ? (Electronic Si gnature) ? The attending pathologist whose signature appears o n this report has ? reviewed all diagnostic slides and has edited the valeri ss and/or ? microscopic portion of the report in rendering the fi nal pathologic ? diagnosis. ? ---Gross Description--- ? A - Labeled/Fixative: Uterus/cervix, fresh. ? Qty/Size/Weight: Single, 10.5 x 7.5 x 4.3 cm, 134.0 grams (overall). ? Specimen Description: Uterus with attached cerv ix and two segments of ? fallopian tube. ? UTERUS AND CERVIX ? Serosa: Congested, ta n-pink distorted by subserosal and intramural masses. ? Endometrium: Hemorrhagic, hernandez-red, 0.1 cm in thicknes s. ? Myometrium: Homogeneous, hernadnez-pink, averaging 1.5 cm . Sections reveal ? multiple circumscribe d bulging hernandez-white masses ranging from 0.4 to 3.5 cm ? in diameter with whorled hernandez-white rubbery cut surfac es. ? Cervix: 2.4 x 2.4 x 3.5 cm, with a small, 0.3 cm post erior polyp. ? Other: Two segments of fallopian tube eac h approximately 0.5 to 0.6 cm ? in legnth. ? SECTIONS/PROCESSING: (1) anterior cervix; (2) posteri or cervix; (3) ? posterior cervical polyp; (4) anterior my ometrium and endometrium; (5) ? posterior myometrium and endometrium; (6- 8) lesions of myometrium; (9) ? section a probable segments of fallopian tube. (R9) ? ?pps ? ---Clinical Information--- ? Specimen Submitted: ? A - Uterus cervix ? [facility] ? Provider: ?? CHRISTINA MELO, ??Pt. Name: ?? REINALDO MERCER, LORAINE ?DENISE ? Acc #: ?[id number] ?Pt. MRN: ?[id number] ? Col Date: ?? 5 ? /Sex: ?1965,(49 years),Female ? Rec Date: ?? 10/11/2014 ? LOC: ?[facility] ? SURGICAL PATHOLOGY ? Clinical History: ? Menorrhagia, fibroids ? Clinical Diagnosis: ? Menorrhagia, fibroids Specimen (Source) Anatomical Collection Method Collection Time Re ceived Time Location / / Volume Laterality 10/11/2014 10:12 AM EST Denise Melo MD PATHOLOGY/CYTOLOGY ORDERA KANDY Performing Organization Address City/State/[place] [address] GENEVIEVE SANTOYO Specimen to Pathology (surgical or derm) (10/11/2014 10:06 AM EST) Specimen Anatomical Collection Method Collection Time Receive d Time (Source) Location / / Volume Laterality AP Specimen 10/11/2014 10:06 10/11/2014 AM EST 10:06 AM EST Narrative CERCEDRIC OJEDAENNIUM - 10/11/2014 10:06 AM EST Specimen requisition ordered. ??Separate Pathology report to follow Denise Melo MD PATHOLOGY/CYTOLOGY ORDERA KANDY Performing Organization Address City/State/ZIP Code Phon e Number [address] GENEVIEVE OJEDAMoqomECHO documented in this encounter Visit Diagnoses Diagnosis Fibroids - Primary Leiomyoma of uterus, unspecified documented in this encounter Administered Medications Inactive Administered Medications - up to 3 most recent administrations Medication Order MAR Action Action Date Dose Rate Site acetaminophen (TYLENOL) tablet Given 10/11/2014 6:26 AM EST 1,00 0 mg 1,000 mg 1,000 mg, Oral, ONCE, 1 dose, On Sat10/11/14 at 0645, Maximum dose of acetaminophen is 4000 mg from all sources in 24 hours., Day of Surgery (Day of Procedure), Routine acetaminophen (TYLENOL) tablet 650 mg Given 10/12/2014 6:24 AM EST 650 mg 650 mg, Oral, EVERY 6 HOURS PRN, Starting on Sat10/11/14 at 1454, Until Sat10/12/14 at 1342, Pain, Routine Given 10/12/2014 12:26 AM EST 650 mg Given 10/11/2014 3:44 PM EST 650 mg docusate sodium (COLACE) capsule 100 mg Given 10/12/2014 8:14 AM EST 100 mg 100 mg, Oral, 2 TIMES DAILY, First dose on Sat10/11/14 at 1345, Until Discontinued, Routine Given 10/11/2014 8:34 PM EST 100 mg esomeprazole (NexIUM) capsule 40 mg Given 10/12/2014 8:14 AM EST 40 mg 40 mg, Oral, DAILY, First dose on Sat10/12/14 at 0900, Until Discontinued, Routine gabapentin (NEURONTIN) capsule 600 mg Given 10/11/2014 6:27 AM EST 600 mg 600 mg, Oral, ONCE, 1 dose, On Sat10/11/14 at 0645, Day of Surgery (Day of Procedure), Routine ketorolac (TORADOL) injection 15 mg Given 10/12/2014 8:14 AM EST 15 mg 15 mg, Intravenous, EVERY 6 HOURS SCHEDULED, 3 doses, First dose on Sat10/11/14 at 1800, Last dose on Sat10/12/14 at 0600, Routine Given 10/12/2014 2:24 AM EST 15 mg Given 10/11/2014 8:19 PM EST 15 mg lactated ringers infusion 1,000 New Bag 10/11/2014 8:34 PM EST 1,000 mLs 100 mL/hr mL 1,000 mL, at 100 mL/hr, Intravenous, CONTINUOUS, Starting on Sat10/11/14 at 1200, Until Sat10/12/14 at 0611 New Bag 10/11/2014 11:53 AM EST 1,000 mLs 100 mL/hr oxyCODONE (ROXICODONE) immediate release Given 10/12/2014 10:55 AM EST 5 mg tablet 5 mg 5 mg, Oral, EVERY 3 HOURS PRN, Starting on Sat10/11/14 at 1139, Until Sat10/12/14 at 1342, Pain, mild to moderate pain (1-6), May give an additional 5 mg in 30 minutes once if pain not relieved., Routine Given 10/11/2014 3:45 PM EST 5 mg Given 10/11/2014 12:43 PM EST 5 mg phenazopyridine (PYRIDIUM) tablet 200 mg Given 10/11/2014 7:29 AM EST 200 mg 200 mg, Oral, ONCE, On Sat10/11/14 at 0745, 1 dose scopolamine (TRANSDERM-SCOP) Given 10/11/2014 6:45 AM EST 1 patc h 01- Ear Behind 1.5 mg patch 1 patch (Left) 1 patch, Transdermal, ONCE, 1 dose, On Sat10/11/14 at 0645, Day of Surgery (Day of Procedure), Routine sodium chloride 0.9 % flush 5 mL Given 10/12/2014 8:14 AM EST 5 mLs 5 mL, Intravenous, 2 TIMES DAILY, First dose on Sat10/11/14 at 1345, Until Discontinued, Routine Given 10/11/2014 8:39 PM EST 5 mLs documented in this encounter Active and Recently Administered Medications Times are shown in EST. Scheduled Medication Order 10/10/2014 10/11/2014 10/12/2014 acetaminophen (TYLENOL) tablet 1,000 mg (COMPLETED) 625 (Given - Provider: Reema Aburto RN) 1,000 mg, Oral, ONCE, 1 dose, Sat 5 at 0645, Maximum dose of acetaminophen is 4000 mg from all sources in 24 hours., Day of Surgery (Day of Procedure), Routine clindamycin (CLEOCIN) 600mg in dextrose 5% 50mL (COMPLETED) 746 (Given - Provider: Juan Bhatt CRNA) 600 mg, Intravenous, ONCE, 1 dose, Sat at 0645, for 20 Minutes, Give over 30-60 minutes. Do not exceed 30mg/minute. Redose after 4 hours., Day of Surgery (Day of Procedure), Indication for (Active or Suspected): Prophylaxis docusate sodium (COLACE) capsule 100 mg 1345 (Not Given - Provider: Carmen Brar RN - Reason: Patient Unable)2033 (Given - Provider: Ivett Reynoso RN) 0814 (Given - Provider: Lashaun Canseco) 100 mg, Oral, 2 TIMES DAILY, First dose on Sat10/11/14 at 1345, Until Discontinued, Routine esomeprazole (NexIUM) capsule 40 mg (CANCELED) 813 (Given - Provider: Dax León RN) 40 mg, Oral, DAILY, First dose on Sat at 0900, Until Discontinued, Routine gabapentin (NEURONTIN) capsule 600 mg (COMPLETED) 626 (Given - Provider: Reema Aburto RN) 600 mg, Oral, ONCE, 1 dose, Sat10/11/14 at 0645, Day of Surgery (Day of Procedure), Routine gentamicin (GARAMYCIN) 148.8 mg in sodium chloride 0.9% 103. 72 mL (COMPLETED) 0800 (Given - Provider: Juan Bhatt CRNA) 148.8 mg (2 mg/kg/dose ? 74.4 kg), Intravenous, ONCE, 1 dose, Sat10/11/14 at 0645, for 60 Minutes, Re- dose after 8 hours., Day of Surgery (Day of Procedure), Indication for (Active or Suspected): Prophylaxis ibuprofen (ADVIL;MOTRIN) tablet 600 mg 600 mg, Oral, EVERY 6 HOURS SCHEDULED, F irst dose on Sat10/12/14 at 1200, Until Discontinued, Administer orally with milk or food to minimize GI irritation. Maximum dose of 3200 mg from all sources in 24 hours, Routine ketorolac (TORADOL) injection 15 mg (COMPLETED) 2018 (Given - Provider: Ivett Reynoso RN) 223 (Given - Provider: Ivett Reynoso RN)0814 (Given - Provider: Dax León RN) 15 mg, Intravenous, EVERY 6 HOURS SCHEDU LED, 3 doses, First dose on Sat10/11/14 at 1800, Last dose on Sat10/12/14 at 0600, Routine phenazopyridine (PYRIDIUM) tablet 200 mg (COMPLETED) 728 (Given - Provider: Reema Aburto, RONAN) 200 mg, Oral, ONCE, 1 dose, Sat10/11/14 at 0745, Routine scopolamine (TRANSDERM-SCOP) 1.5 mg patch 1 patch (COMPLETED ) 06 (Given - Provider: Reema Aburto, RONAN) 1 patch, Transdermal, ONCE, 1 dose, Sat10/11/14 at 0645, Day of Surgery (Day of Procedure), Routine sodium chloride 0.9 % flush 5 mL (CANCELED) 1345 (Not Given - Provider: Carmen Brar RN - Reason: See comment - Comment: IV fluids infusing)2038 (Given - Provider: Ivett Reynoso RN) 0814 (Given - Provider: Lashaun Canseco) 5 mL, Intravenous, 2 TIMES DAILY, First dose on Sat10/11/14 at 1345, Until Discontinued, Routine Continuous Medication Order 10/10/2014 10/11/2014 10/12/2014 lactated ringers infusion 1,000 mL (CANCELED) 0705 (New Bag - Provider: Juan Bhatt CRNA)0733 (Anesthesia Volume Adjustment - Provider: Juan Bhatt CRNA)0815 (Anesthesia Volume Adjustment - Provider: Juan Bhatt CRNA)1101 (Anesthesia Volume Adjustment - Provider: Juan Bhatt CRNA) 1,000 mL, at 100 mL/hr, Intravenous, CON TINUOUS, Starting Sat10/11/14 at 0645, Until Sat10/11/14 at 1307, Day of Surgery (Day of Procedure) lactated ringers infusion 1,000 mL (CANCELED) 1153 (New Bag - Provider: Lu John RN)2034 (New Bag - Provider: Ivett Reynoso RN) 0611 (Stopped - Provider: Ivett Reynoso RN) 1,000 mL, at 100 mL/hr, Intravenous, CON TINUOUS, Starting Sat10/11/14 at 1200, Until Sat10/12/14 at 0611 PRN Medication Order 10/10/2014 10/11/2014 10/12/2014 acetaminophen (TYLENOL) tablet 650 mg (CANCELED) 1544 (Given - Provider: Carmen Brar RN) 0026 (Given - Provider: Ivett Reynoso RN)0624 (Given - Provider: Ivett Reynoso RN) 650 mg, Oral, EVERY 6 HOURS PRN, Startin g Sat10/11/14 at 1454, Until Sat10/12/14 at 1342, Pain, Routine BUpivacaine (PF) (MARCAINE) 0.25 % (2.5 mg/mL) injection (CA NCELED) 0948 (Given - Provider: Denise Melo MD) ONCE PRN, Starting Sat10/11/14 at 0948, Until Sat10/11/14 at 1307, Intra- Operative (Intra-Procedure), Routine oxyCODONE (ROXICODONE) immediate release tablet 5 mg 1243 (Given - Provider: Rama Wilde RN)1545 (Given - Provider: Carmen Brar RN) 1055 (Given - Provider: Dax León RN) 5 mg, Oral, EVERY 3 HOURS PRN, Starting 10/11/14 at 1139, Until 10/12/14 at 1342, Pain, mild to moderate pain (1-6), May give an additional 5 mg in 30 minutes once if pain not relieved., Routine documented in this encounter Care Teams Patient Services Assistant Relationship Specialty Start Date End Date Mya Garza MD PCP - General 08/08/[address] [place] [address] [address] [place] [address] documented as of this encounter
--- OUTSIDE RECORDS SUMMARY | 2022-04-04 01:14 | XMS_ITS | Clinical Summary ---
:[address] [facility] Address [address] [place] [address] Care Team Providers Name Role Phone Mya Garza MD Primary Care Provider Social History Tobacco Use Types Packs/Day Years Used Date Never Assessed Sex Assigned at Date Recorded Not on file Plan of Treatment Not on file Care Teams Portfolio Specialist Relationship Specialty Start Date End Date Mya Garza MD PCP - General 10/02/17 [address] [place], [place] [id number]
--- OUTSIDE RECORDS SUMMARY | 2022-04-04 01:15 | XMS_ITS | Encounter Summary ---
:1965 [place] [address] Care Team Providers Name Role Phone Mya Garza MD Primary Care Provider Encounter Details Date Type Department Care Team Description 10/11/2014 Anesthesia Event Main Operating Room Guerda Hager MD [facility] [place] [address] [facility] Juan Bhatt CRNA [facility] [place] [address] [place] [address] Anesthesia Record Procedure Summary Procedure Name Responsible Anesthesia Start Anesthesia Stop Time Anesthesiologist Time ALEXANDRA, Guerda Rubalcava MD 10/11/14 0731 10/11/14 1 147 HYSTERECTOMY, UTERUS<250GM, ROBOTIC ASSIST (WRVU 13.36) (N/A Pelvis) Events Date Time Event Comment 10/11/2014 0725 0731 AN Verify 0731 Start 0737 An Start Data 0743 An Induction 0747 an gabi now 0751 An Intubation 0801 Anesthesia Ready [address] to low suction per surgeon request. 0818 Procedure Start Time out complet e prior to surgery start. 0918 Break/Relief In Denise corley CRNA 0932 Break/Relief Out 1137 Extubation/LMA Out Extubated w/o event to at 6L. Oral airway in place. 1137 an stop data 1147 Stop To PACU, report to RN. VSS. Oral airway removed. Name Total Midazolam 2 mg fentaNYL 100 mcg IV Lidocaine 60 mg Propofol 150 mg Rocuronium 130 mg PHENYLephrine 80 mcg Ondansetron 4 mg Dexamethasone 4 mg Neostigmine 3 mg Glycopyrrolate 0.4 mg clindamycin (CLEOCIN) 600mg in dextrose 5% 50mL 600 mg gentamicin (GARAMYCIN) 148.8 mg in sodium chloride 0.9 % 103.72 mL 148.8 mg HYDROmorphone 1 mg Promethazine 2.5 mg Propofol INF 124.99 mg Ketorolac 30 mg nalOXone 120 mcg lactated ringers infusion 1,000 mL 1,000 mL Lactated Ringers 800 mL Agents Name O2 Air Sevoflurane (et) Blood No blood administrations on file. Lines, Drains, and Airways Type Details Placement Removal Incision 10/11/14; abdomen 10/11/14 0000 by Meche Casey, RN Urethral Catheter 10/11/14; indwelling 10/11/14 0000 by 10/12/14 0537 by double lumen catheter; Meche Casey Corm ier, Ivett A, 100% silicone; 16; RN RN inserted at this facility; 1; 10; 10; none; urethral catheter removed, tubing intact, per protocol/policy; 10/12/14; 0537 PIV 10/11/14; 0637; 10/11/14 0637 by 10/12/14 1034 b y metacarpal vein left (top Reema Aburto, RN [facility], Yojana Leigh, of hand); [id number] MANAGER OF CASE catheter system; 20 gauge; HOWARD RN; intradermal injection; 10/12/14; 1034 ETT Mask Ventilation: Adjunct 10/11/14 0751 by 10/11 1137 by (2) (by ED resident. ); Juan Bhatt CRNA Gle nn, David C, CRNA ETT Type: Cuffed, Oral; ETT Size: 7 mm; Holt Blade: 2; Notes: Asleep, Pre-O2, Stylette; Attempts: 2 (ED resident x 1); Laryngoscopy Grade: 1; ETT Placement Verified By: Auscultation, Capnometry, Visual; Secured at Teeth: 21 cm; Inserted by: Nitesh Bhatt CRNA PIV 10/11/14; 0757; 10/11/14 0757 by 10/12/14 1034 b y metacarpal vein right Juan Bhatt, ADONIS Chavez DustinYojana T, (top of hand); MANAGER OF CASE [id number]-[id number] catheter system; 18 gauge; Nitesh Bhatt; 10/12/14; 1034 documented in this encounter Social History Tobacco Use Types Packs/Day Years Used Date Never Smoker Smokeless Tobacco: Never Used Alcohol Use Standard Drinks/Week Comments Not Asked 0 (1 standard drink = 0.6 oz pure alcoho l) Sex Assigned at Date Recorded Not on file documented as of this encounter OR Notes Anesthesia Postprocedure Evaluation - Guerda Rubalcava MD - 10/12/2014 11:35 AM EST Patient: Loraine Francois Procedure(s) Performed: Procedure(s): LAPAROSCOPY, HYSTERECTOMY, UTERUS<250GM, ROBOTIC ASSIST Actual Anesthetic: general Patient location: Ms. Francois was evaluated in the Short Stay unit. Post-op pain: Adequate analgesia; pt reports mild discomfort in the lower abdomen, but states it is quite tolerable. Post-op nausea: no nausea or vomiting; pt has been able to tolerate PO without issue. Last Vitals: Filed Vitals: 10/12/14 0814 BP: 103/60 Pulse: 67 Temp: Resp: Post-op cardiovascular and respiratory status: is stable Level of consciousness: awake, alert and oriented Complications: no apparent complications and tolerated the procedure well Fluid Status: normal Anesthesia Preprocedure Evaluation - Guerda Rubalcava MD - 10/10/2014 3:15 PM EST Pre-Anesthesia Evaluation for: Loraine Francois a 49 y.o. female. Procedure(s): LAPAROSCOPY, HYSTERECTOMY, UTERUS<250GM, ROBOTIC ASSIST Patient Active Problem List Diagnosis ??? Fibroids ??? Anemia ??? Fatigue ??? Transfusion history ??? Corneal dystrophy Past Medical History Diagnosis Date ??? Anemia ??? Fatigue ??? Transfusion history ??? Other abnormal Papanicolaou smear of cervix and cervical HPV(795.09) observation only ??? Encounter for blood transfusion Post /post op hemorrhage-a lot of units ??? 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 Varicella ??? Corneal dystrophy Past Surgical History Procedure Laterality Date ??? Tubal ligation Laparoscopic ??? section x 2 with post hemorrhage following the second c/s ??? Laparotomy ??? Abdomen surgery laparotomy following c/s ??? Tonsillectomy 7 years of age History Substance Use Topics ??? Smoking status: Never Smoker ??? Smokeless tobacco: Never Used ??? Alcohol Use: Not on file History Drug Use No Allergies Allergen Reactions ??? Cefaclor Hives Medications: MAR and/or home medications have been reviewed. Physical Exam: There were no vitals filed for this visit. There is no weight on file to calculate BMI. Airway Assessment: Mallampati: II TM distance: >3 FB Neck ROM: full Cardiovascular Assessment: Pulmonary Assessment: Dental Assessment: - normal exam [facility] Assessment: IV access: Peripheral line Anesthesia Plan: ASA 2 general, with a(n) intravenous induction Ms. Francois is a 49 year old female with PMHx of menorrhagia secondary to uterine fibroids who presents for robotic assisted laparoscopy hysterectomy. Pt has an allergy to Cefaclor. Laboratory values reviewed (10/04/14): Hg 14.1; type and screen current. Plan for preoperative Tylenol, gabapentin, scopolamine patch, GETA/LTA. Risks were discussed at length, and all questions and concerns were addressed. Consent was obtained, and the appropriate paperwork was placed in the patient's chart. Region - Other Informed Consent: Anesthetic plan and risks discussed with patient and spouse. Plan discussed with COURIER DRIVER. [facility]. Assessment: documented in this encounter Plan of Treatment Not on filedocumented as of this encounter Visit Diagnoses Not on filedocumented in this encounter Administered Medications Inactive Administered Medications - up to 3 most recent administrations Medication Order MAR Action Action Date Dose Rate Site clindamycin (CLEOCIN) 600mg in Given 10/11/2014 7:47 AM EST 600 mg dextrose 5% 50mL 600 mg, Intravenous, ONCE, 1 dose, On 10/11/14 at 0645, Administer over 20 Minutes, Give over 30-60 minutes. Do not exceed 30mg/minute. Redose after 4 hours., Day of Surgery (Day of Procedure), Indication for (Active or Suspected): Prophylaxis dexamethasone (DECADRON) injection Given 10/11/2014 7:45 AM EST 4 mg PRN, Starting on Sat10/11/14 at 0745, Until Sat10/11/14 at 1151, Anesthesia Intra-op, Routine fentaNYL 50mcg/mL injection Given 10/11/2014 7:41 AM EST 100 mcg PRN, Starting on Sat10/11/14 at 0741, Until Sat10/11/14 at 1151, Pain, Anesthesia Intra-op, Routine gentamicin (GARAMYCIN) 148.8 mg in sodium Given 10/11/2014 8 :00 AM EST 148.8 mg chloride 0.9% 103.72 mL 148.8 mg (2 mg/kg/dose ? 74.4 kg), Intravenous, ONCE, 1 dose, On Sat10/11/14 at 0645, Administer over 60 Minutes, Re-dose after 8 hours., Day of Surgery (Day of Procedure), Indication for (Active or Suspected): Prophylaxis glycopyrrolate (ROBINUL) injection Given 10/11/2014 10:58 AM EST 0.4 mg PRN, Starting on Sat10/11/14 at 1058, Until Sat10/11/14 at 1151, Anesthesia Intra-op, Routine HYDROmorphone (DILAUDID) injection Given 10/11/2014 9:34 AM EST 0.4 mg PRN, Starting on Sat10/11/14 at 0814, Until Sat10/11/14 at 1151, Pain, Anesthesia Intra-op, Routine Given 10/11/2014 8:14 AM EST 0.6 mg ketorolac (TORADOL) injection Given 10/11/2014 11:00 AM EST 30 mg PRN, Starting on Sat10/11/14 at 1100, Until Sat10/11/14 at 1151, Pain, Anesthesia Intra-op, Routine lactated ringers infusion 1,000 mL New Bag 10/11/2014 7:05 AM EST 1,000 mL, at 100 mL/hr, Intravenous, CONTINUOUS, Starting on Sat10/11/14 at 0645, Until Sat10/11/14 at 1307, Day of Surgery (Day of Procedure) lactated ringers infusion New Bag 10/11/2014 7:57 AM EST CONTINUOUS PRN, Starting on Sat10/11/14 at 0757, Until Sat10/11/14 at 1151, Anesthesia Intra-op lidocaine (PF) (XYLOCAINE) 100 mg/5 mL (2 %) Given 5 7:43 AM EST 60 mg injection PRN, Starting on Sat10/11/14 at 0743, Until Sat10/11/14 at 1151, Anesthesia Intra-op, Routine midazolam (PF) (VERSED) 1 mg/mL injectio n Given 10/11/2014 7:31 AM EST 2 mg PRN, Starting on Sat10/11/14 at 0731, Until Sat10/11/14 at 1151, Sleep, Anesthesia Intra-op, Routine nalOXone (NARCAN) injection Given 10/11/2014 11:34 AM EST 40 mcg PRN, Starting on Sat10/11/14 at 1128, Until Sat10/11/14 at 1151, Opioid Reversal, Anesthesia Intra-op, Routine Given 10/11/2014 11:32 AM EST 40 mcg Given 10/11/2014 11:28 AM EST 40 mcg neostigmine (PROSTIGMINE) injection Given 10/11/2014 10:58 AM EST 3 mg PRN, Starting on Sat10/11/14 at 1058, Until Sat10/11/14 at 1151, Anesthesia Intra-op, Routine ondansetron (ZOFRAN) injection Given 10/11/2014 10:55 AM EST 4 mg PRN, Starting on Sat10/11/14 at 1055, Until Sat10/11/14 at 1151, Nausea, Anesthesia Intra-op, Routine PHENYLephrine HCl in NS (PF) (NAT-SYNEPHRINE) Given 8:00 AM EST 80 mcg 0.8 mg/10 mL (80 mcg/mL) injection Syrg PRN, Starting on Sat10/11/14 at 0753, Until Sat10/11/14 at 1151, Anesthesia Intra-op, Routine promethazine (PHENERGAN) injection Given 10/11/2014 8:34 AM EST 2.5 mg PRN, Starting on Sat10/11/14 at 0834, Until Sat10/11/14 at 1151, Nausea, Anesthesia Intra-op, Routine propofol (DIPRIVAN) 10 mg/mL bolus injection Given 7:43 AM EST 150 mg (Anesthesia) PRN, Starting on Sat10/11/14 at 0743, Until Sat10/11/14 at 1151, Anesthesia Intra-op propofol (DIPRIVAN) infusion New Bag 10/11/2014 9:45 AM 20 mcg/kg/min 8.9 mL/hr CONTINUOUS PRN, Starting on Sat EST 10/11/14 at 0945, Until Sat10/11/14 at 1151, Anesthesia Intra-op, Routine rocuronium (ZEMURON) injection Given 10/11/2014 9:38 AM EST 20 mg PRN, Starting on Sat10/11/14 at 0743, Until Sat10/11/14 at 1151, Anesthesia Intra-op, Routine Given 10/11/2014 9:10 AM EST 20 mg Given 10/11/2014 8:44 AM EST 20 mg documented in this encounter Care Teams Certified Nursing Attendant Relationship Specialty Start Date End Date Mya Garza MD PCP - General 08/08/[address] [place] [address] documented as of this encounter
--- OUTSIDE RECORDS SUMMARY | 2022-04-04 01:15 | XMS_ITS | Encounter Summary ---
:1965 Author Organization [facility] [address] Care Team Providers Name Role Phone Mya Garza MD Primary Care Provider Reason for Visit Reason Comments Establish Care Fibroids Menorrhagia Encounter Details Date Type Department Care Team Description 06/11/2014 Office Visit Obstetrics and Paulette Cervantes (Primary Dx); Gynecology at [facility] Denise Garcia MD Fibroids; [facility] [address] [place] OBSTETRICS & [id number] GYNECOLOGY [phone] [place], [place] [address] (Wo rk) Social History Tobacco Use Types Packs/Day Years Used Date Never Smoker Smokeless Tobacco: Never Used Alcohol Use Standard Drinks/Week Comments Not Asked 0 (1 standard drink = 0.6 oz pure alcoho l) Sex Assigned at Date Recorded Not on file documented as of this encounter Last Filed Vital Signs Vital Sign Reading Time Taken Comments Blood Pressure 110/80 06/11/2014 10:56 AM EDT Pulse - - Temperature - - Respiratory Rate - - Oxygen Saturation - - Inhaled Oxygen Concentration - - Weight 75.8 kg (167 lb) 06/11/2014 10:56 AM EDT Height 166.4 cm (5' 5.5) 06/11/2014 10:56 AM EDT Body Mass Index 27.37 06/11/2014 10:56 AM EDT documented in this encounter Progress Notes Denise Cervantes MD - 06/11/2014 11:37 AM EDT REPRODUCTIVE MEDICINE NEW PATIENT CONSULT NOTE [place], [place] Denise Melo MD IVF/ART Emergency Planning And Response Manager Braulio Hollis, MD Femi Blanco. EMELYN Chandler, program accredited legal secretary [phone] Chief Complaint: 1.) Menorrhagia 2.) LLQ pain 3.) Fatigue SUBJECTIVE: Ms. Francois is a 49 y.o. who I am asked to consult on at the request of MYA GARZA MD for a discussion with regards to menorrhagia and constant dull ache in the left lower quadrant with intermittent sharp LLQ pain.. 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 On her heaviest days she uses anight time pad (two big ones) and notes passing clots the size of plum sized clots. Some periods shehas painful pressure. She notes no bleeding in between her periods (perhaps light pink occasionally. She notes fatigue x 1 year and notes tired following prolonged walking. This has accelerated walking up hill in the last 6 months. She has been anemia with Hemo/HCT of 10.3/34.5. No iron studies complete yet. She has not been taking iron supplements but eating iron rich foods. She notes pain on direct stimulation of one area on intercourse within the vagina, she notes urinary frequency especially before and after her period and worse in the morning and pelvic pressure and bloating from two weeks before her period extending into her cycle. She notes nocturia is not marked because she is very tired. She noted the onset of LLQ pain ~ 5 years ago and is largely constant and dull with intermittent sharp pain. She notes radiation into her left knee of her pain. She notes regular daily bowel movements but before her menses has some constipation. Past Medical History Diagnosis Date ??? Anemia ??? Fatigue ??? Transfusion history ??? Other abnormal Papanicolaou smear of cervix and cervical HPV(795.09) observation only ??? Encounter for blood transfusion Post /post op hemorrhage-a lot of units ??? 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 Varicella ??? Corneal dystrophy Past Surgical History Procedure Date ??? Tubal ligation Laparoscopic ??? section x 2 with post hemorrhage following the second c/s ??? Laparotomy ??? Abdomen surgery laparotomy following c/s ??? Tonsillectomy 7 years of age Cefaclor History Social History ??? Marital Status: Spouse Name: N/A Number of Children: N/A ??? Years of Education: N/A Occupational History ??? Not on file. Social History Main Topics ??? Smoking status: Never Smoker ??? Smokeless tobacco: Never Used ??? Alcohol Use: Not on file ??? Drug Use: No ??? Sexually Active: Yes -- Male partner(s) Other Topics Concern ??? Not on file Social History Narrative x 25 years. 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 Alcohol intake rarely 2-4 times a year. Never smoked non smoker. 2 children ages 19, 17- one in college one in senior in high school. Family History Problem Relation Age of Onset ??? Hypertension Mother Review of Systems - Generally tired and fatigued Cardiovascular ROS: positive for - palpitations and SOB Asthma-as a child Musculoskeletal-Resolving right sided neck pain Extremities- cold quickly Strength-Some loss GI-intermittent constipation above OBJECTIVE: BP 110/80 Ht 166.4 cm (5' 5.5) Wt 75.751 kg (167 lb) BMI 27.36 kg/m2 LMP 05/12/2014 General: Well groomed articulate female in no apparent distress HEENT: thyroid normal size and shape, no palpable nodularity or tenderness, nor supraclavicular nodes COR: RRR without murmur Lungs: CTA Breast: Not performed Abdomen: Soft without distension, normal active bowel sounds, soft, nontender, without hepatosplenomegaly, without masses, guarding or rebound tenderness to palpation Pelvic exam: Normal external genitalia, normal urethral orifice and vaginal mucosa and normal physiologic vaginal and cervical discharge. The cervix appears normal for without lesion. BM: normal anteverted uterus, 13-14 week sizedwith firm mass filling the anterior cul-d-es sac to her left and extending into the broad ligament ~ 5 cm, without nodularity, non-tender, no adnexal masses appreciated RV: deferred Review of US -images reviewed from the outside and reviewed with the patient + myomatous uterus withleft anterior broad myoma ~ 4 cm and normal ovulatory follicle Current laboratory- as above Endometrial Biopsy: Procedure Note: Following a brief verbal description of the procedure, verbal consent was obtained from the patient. She stated her name, date of , and procedure to be performed was confirmed in a time out procedure prior to beginning. A medium speculum was placed without difficulty. The cervix and vagina were prepped with sterile betadine. A graves was placed through the cervix without difficulty. The uterus sounded to 11 cm. A biopsy was obtained in a 360 degree fashion. The tissue was placed into formalin for pathologic specimen and labeled with her name and date of and sent to pathology for assessment. The patient tolerated the procedure well. The estimated blood loss was minimal. DENISE MELO MD ASSESSMENT: 1.) Menorrhagia 2.) LLQ pain 3.) Fatigue I had a Individual counseling : 55 minutes minute consultation visit with this patient, 50 minutes spent in face to face consultation, with regards to the nature of her medical illness, the potential treatment options including ,medical management (ocp's, mirena IUS, progestins, hysterectomy options, myomectomy, and UAE). She declined myomectomy having completed childbearing and has not stated attachment to her uterus. She came into the appointment wanting to discuss hysterectomy. We reviewed treatment of anemia and iron supplementation and the possibility of lupron treatment ( I suggested 3 months). We discussed hysterectomy routes (abdominal, robotic, laparoscopic), recovery times, incision types. Of note she had a laparotomy for a profound hemorrhage after her second C/S--her TL was performed several months later by laparoscopy (eport not available today). She received many units of blood had a central line and was in an ICU following that repeat procedure. RECOMMENDATIONS: 1.)CBC, TSH, TIBC, ferritin 2.) Obtain op report 3.) patient to consider options for care and call, currently leaning towards hysterectomy 4.) Endometrial bx to pathology 5.) Ask to start MVi daily and one iron table daily documented in this encounter Plan of Treatment Not on filedocumented as of this encounter Procedures Procedure Name Priority Date/Time Associated Diagnosis Comme nts HEMOGRAM Routine 06/11/2014 12:53 PM Anemia Results for this EDT procedure are i n the results section. DIFFERENTIAL, Routine 06/11/2014 12:53 PM Anemia Results for this AUTOMATED EDT procedure are i n the results section. IRON AND TIBC Routine 06/11/2014 12:53 PM Anemia Results for this EDT procedure are i n the results section. CBC (WITH DIFF) Routine 06/11/2014 12:53 PM Anemia EDT TSH Routine 06/11/2014 12:53 PM Anemia Results for this EDT Menorrhagia procedure are i n the results section. SURGICAL PATHOLOGY Routine 06/11/2014 11:46 AM Re sults for this REPORT EDT procedure are i n the results section. SPECIMEN TO Routine 06/11/2014 11:46 AM Menorrhagia Results for this PATHOLOGY EDT procedure are i n the results section. documented in this encounter Results Differential, Automated (06/11/2014 12:53 PM EDT) P athologist Signature Neutrophils % 65.7 34.0 - CERNER 71.0 % MILLENNIUM Neutr Abs (ANC) 5.39 1.50 - CERNER 6.30 MILLENNIUM x10(3)/mcL Lymphocytes % 24.1 19.0 - CERNER 53.0 % MILLENNIUM Lymphocytes Abs 2.0 1.0 - 3.6 CERNER x10(3)/mcL MILLENNIUM Monocytes % 8.3 4.0 - 13.0 CERNER % MILLENNIUM Monocyte Abs 0.7 0.2 - 1.0 CERNER x10(3)/mcL MILLENNIUM Eosinophils % 1.0 0.0 - 7.0 CERNER % MILLENNIUM Eosinophils Abs 0.1 0.0 - 0.5 CERNER x10(3)/mcL MILLENNIUM Basophils % 0.5 0.0 - 2.0 CERNER % MILLENNIUM Basophils Abs 0.0 0.0 - 0.2 CERNER x10(3)/mcL MILLENNIUM Immature Gran % 0.40 0.00 - CERNER 0.66 % MILLENNIUM Comment: Immature granulocytes(IG's)percentage an d absolute count will include metamyelocytes, myelocytes, and promyelo cytes. Blood smears from CBCs yielding IG's will be scanned manually for concmarika danmara. If this scan disagrees with the automated IG or if promyelocytes are not ed, a manual differential will be performed. Juliet Gran Abs 0.03 0.00 - 0.05 x10(3)/mcL CER NER MILLENNIUM Specimen Anatomical Collection Method Collection Time Receive d Time (Source) Location / / Volume Laterality Blood specimen 06/11/2014 12:53 4 (specimen) PM EDT 12:58 PM EDT Resulting Agency Comment Spec In Lab Denise Melo MD HEMATOLOGY ORDERABLES Performing Organization Address City/[facility]/[place] [address] CERNER MILLENNIUM (ABNORMAL) Hemogram (06/11/2014 12:53 PM EDT) P athologist Signature WBC 8.2 4.0 - 10.0 CERNER x10(3)/mcL MILLENNIUM RBC 4.54 3.93 - CERNER 5.22 MILLENNIUM x10(6)/mcL Hemoglobin 11.2 11.2 - CERNER 15.7 gm/dL MILLENNIUM Hematocrit 35.4 34.0 - CERNER 45.0 % MILLENNIUM MCV 78.0 (L) 79.0 - CERNER 94.0 fL MILLENNIUM MCH 24.7 (L) 26.6 - CERNER 32.2 pg MILLENNIUM MCHC 31.6 (L) 32.0 - CERNER 36.5 gm/dL MILLENNIUM Platelets 283 145 - 370 CERNER x10(3)/mcL MILLENNIUM RDWSD 50.8 (H) 35.0 - CERNER 46.0 fL MILLENNIUM RDWCV 17.9 (H) 10.9 - CERNER 14.4 % MILLENNIUM MPV 11.2 9.0 - 12.0 CERNER fL MILLENNIUM Specimen Anatomical Collection Method Collection Time Receive d Time (Source) Location / / Volume Laterality Blood specimen 06/11/2014 12:53 4 (specimen) PM EDT 12:58 PM EDT Resulting Agency Comment Spec In Lab Denise Melo MD HEMATOLOGY ORDERABLES Performing Organization Address City/[facility]/[place] [address] CERNER MILLENNIUM (ABNORMAL) Iron and TIBC (06/11/2014 12:53 PM EDT) Patholo gist Method Time Signature Iron 23 (L) 30 - 150 CERNER mcg/dL MILLENNIUM TIBC Not Calculated 250 - 450 CERNER mcg/dL MILLENNIUM Iron Not Calculated 20 - 50 % CERNER Saturation MILLENNIUM Specimen Anatomical Collection Method Collection Time Receive d Time (Source) Location / / Volume Laterality Blood specimen 06/11/2014 12:53 4 (specimen) PM EDT 12:58 PM EDT Resulting Agency Comment Spec In Lab Denise Melo MD CHEMISTRY ORDERABLES Performing Organization Address City/State/ZIP Code Phon e Number [address] CERNER MILLENNIUM TSH (06/11/2014 12:53 PM EDT) P athologist Signature TSH 1.13 0.27 - 4.20 CERNER mcIU/mL MILLENNIUM Specimen Anatomical Collection Method Collection Time Receive d Time (Source) Location / / Volume Laterality Blood specimen 06/11/2014 12:53 4 (specimen) PM EDT 12:58 PM EDT Resulting Agency Comment Spec In Lab Denise Melo MD CHEMISTRY ORDERABLES Performing Organization Address City/[facility]/[place] [address] CERNER MILLENNIUM Surgical Pathology Report (06/11/2014 11:46 AM EDT) [facility] gist Method Time Signature Surgical CERNER Pathology ? [facility] MILLENNIUM Report ? Provider: ?? CHRISTINA MELO, ??Pt. Name: ?? REINALDO MERCER, LORAINE ?DENISE ? Acc #: ?[id number] ?Pt. MRN: ?[id number] ? Col Date: ?? 4 ? /Sex: ?1965,(49 years),Female ? Rec Date: ?? 06/11/2014 ? LOC: ?5L ? SURGICAL PATHOLOGY ? ---Pathologic Diagnosis--- ? Endometrial biopsy: ?Fragments of benign secretory endometrium (see C omment). ? CR-0 ? 06/15/14 ? JLG ? 06/15/14 Verified by: ? Kyle RAMÍREZ, Juice Lo ? Pathologist ? (Electronic Si gnature) ? The attending pathologist whose signature appears o n this report has ? reviewed all diagnostic slides and has edited the valeri ss and/or ? microscopic portion of the report in rendering the fi nal pathologic ? diagnosis. ? ---Comment--- ? Hyperplasia is difficult to evaluate duri ng the secretory phase of the ? menstrual cycle. ? ---Gross Description--- ? A - Labeled/Fixative: Patient's information, formalin . ? Quantity/Size: Multiple, aggregate measurement of 2.0 x 1.5 x 0.7 cm. ? Tissue Description: Soft hernandez-pink tissues. ? Sections/Processing: (T2) ??aml ? ---Clinical Information--- ? Specimen Submitted: ? A - Endometrial pipelle biopsy ? Clinical History: ? Menorrhagia ? Clinical Diagnosis: ? Same Specimen (Source) Anatomical Collection Method Collection Time Re ceived Time Location / / Volume Laterality 06/11/2014 11:46 AM EDT Denise Melo MD PATHOLOGY/CYTOLOGY ORDERA KANDY Performing Organization Address City/[facility]/ZIP Code Phon e Number [address] [facility] Specimen to Pathology (surgical or derm) (06/11/2014 11:46 AM EDT) Specimen Anatomical Collection Method Collection Time Receive d Time (Source) Location / / Volume Laterality AP Specimen 06/11/2014 11:46 06/11/2014 AM EDT 11:46 AM EDT Narrative CERNER MITCHELLIUM - 06/11/2014 11:46 AM EDT Specimen requisition ordered. ??Separate Pathology report to follow Denise Melo MD PATHOLOGY/CYTOLOGY ORDERA KANDY Performing Organization Address City/[facility]/ZIP Code Phon e Number [address] GENEVIEVE SANTOYO documented in this encounter Visit Diagnoses Diagnosis Anemia - Primary Anemia, unspecified Fibroids Leiomyoma of uterus, unspecified Menorrhagia Excessive or frequent menstruation documented in this encounter Care Teams Sled Maker Relationship Specialty Start Date End Date Mya Garza MD PCP - General 08/08/10 [address] [place] [address] documented as of this encounter
--- OUTSIDE RECORDS SUMMARY | 2022-04-04 01:15 | XMS_ITS | Encounter Summary ---
:1965 Author Organization [facility] [place] [address] Care Team Providers Name Role Phone Mya Garza MD Primary Care Provider Encounter Details Date Type Department Care Team Description 10/04/2014 Clinical Support [facility] [place] [place] [address] Social History Tobacco Use Types Packs/Day Years Used Date Never Smoker Smokeless Tobacco: Never Used Alcohol Use Standard Drinks/Week Comments Not Asked 0 (1 standard drink = 0.6 oz pure alcoho l) Sex Assigned at Date Recorded Not on file documented as of this encounter Last Filed Vital Signs Vital Sign Reading Time Taken Comments Blood Pressure - - Pulse - - Temperature - - Respiratory Rate - - Oxygen Saturation 99% 10/04/2014 12:08 PM EST Inhaled Oxygen Concentration - - Weight - - Height - - Body Mass Index - - documented in this encounter Progress Notes Reema Aburto RN - 10/04/2014 12:32 PM EST PAT questionnaire reviewed with patient while in Pre Admission testing. Previous surgeries without anesthesia complications. Had unexpected C-sections with post delivery hemorrhage. Does have vertigo and motion sickness. Pre-operative instruction booklet reviewed. Patient verbalizes a good understanding of all information reviewed. PLAN: Testing: Blood work Special medication instructions: n/a Procedure date: October 11, [address] Dior documented in this encounter Plan of Treatment Not on filedocumented as of this encounter Visit Diagnoses Not on filedocumented in this encounter Care Teams Sleeve Setter Safety Stitch Relationship Specialty Start Date End Date Mya Garza MD PCP - General 08/08/[address] [place] [address] documented as of this encounter
--- OUTSIDE RECORDS SUMMARY | 2022-04-04 01:15 | XMS_ITS | Encounter Summary ---
:1965 Author Organization [facility] [place] [address] Care Team Providers Name Role Phone Mya Garza MD Primary Care Provider Encounter Details Date Type Department Care Team Description 05/25/2014 Orders Only Obstetrics and Gynecology Shirley Lorenzo [place] [facility] [place] Jose [facility] [place] [address] OBSTETRICS & GYNECOLOGY [phone] [place], [place] [address] (Wo rk) Social History Tobacco Use Types Packs/Day Years Used Date Never Assessed Sex Assigned at Date Recorded Not on file documented as of this encounter Plan of Treatment Not on filedocumented as of this encounter Procedures Procedure Name Priority Date/Time Associated Comments Diagnosis FILM LIBRARY STORAGE Routine 05/25/2014 9:10 AM R esults for this ONLY ULTRASOUND EDT procedure ar e in STUDY the results section. documented in this encounter Results Film Library- Storage only Ultrasound Study (05/25/2014 9:10 AM EDT) Anatomical Region Laterality Modality Other Specimen (Source) Anatomical Collection Method Collection Time Re ceived Time Location / / Volume Laterality 05/25/2014 9:10 AM EDT Narrative 06/03/2014 9:13 AM EDT This is a Non-reportable exam Procedure Note 06/03/2014 This is a Non-reportable exam Shirley Gallegos MD IMG FILM LIBRARY ORDERABL ES documented in this encounter Visit Diagnoses Not on filedocumented in this encounter Care Teams Director Camp Relationship Specialty Start Date End Date Mya Garza MD PCP - General 08/08/[address] [place] [address] documented as of this encounter
--- OUTSIDE RECORDS SUMMARY | 2022-04-04 01:15 | XMS_ITS | Encounter Summary ---
:1965 Author Organization [facility] [place] [address] Care Team Providers Name Role Phone Mya Garza MD Primary Care Provider Encounter Details Date Type Department Care Team Description 07/30/2014 Clinical Support Obstetrics and Gynecology at NURSE, O B/TAILOR FITTER Fibroids [facility] [place] [address] Social History Tobacco Use Types Packs/Day Years Used Date Never Smoker Smokeless Tobacco: Never Used Alcohol Use Standard Drinks/Week Comments Not Asked 0 (1 standard drink = 0.6 oz pure alcoho l) Sex Assigned at Date Recorded Not on file documented as of this encounter Progress Notes Marlee Brooks LPN - 07/30/2014 10:25 AM EST Pt here to get her Depo Lupron injection. Next injection is due 08/27 and pt is scheduling this on her way out today. The did bring her own medication in with her today for us to give to her., documented in this encounter Plan of Treatment Not on filedocumented as of this encounter Visit Diagnoses Diagnosis Fibroids Leiomyoma of uterus, unspecified documented in this encounter Care Teams Six Sigma Black Trainer Relationship Specialty Start Date End Date Mya Garza MD PCP - General 08/08/[address] [place] [address] documented as of this encounter
--- OUTSIDE RECORDS SUMMARY | 2022-04-04 01:15 | XMS_ITS | Encounter Summary ---
:1965 Author Organization [facility] Address [facility] [place] [address] Care Team Providers Name Role Phone Mya Garza MD Primary Care Provider Encounter Details Date Type Department Care Team Description 06/30/2014 Orders Only Obstetrics and Sameer Gallegos, Fibroid s (Primary Dx) [place] [facility] Shirley Garcia MD [facility] [address] [place] OBSTETRICS & [phone] GYNECOLOGY [phone] [place], [place] [address] (Wo rk) Social History Tobacco Use Types Packs/Day Years Used Date Never Smoker Smokeless Tobacco: Never Used Alcohol Use Standard Drinks/Week Comments Not Asked 0 (1 standard drink = 0.6 oz pure alcoho l) Sex Assigned at Date Recorded Not on file documented as of this encounter Plan of Treatment Not on filedocumented as of this encounter Visit Diagnoses Diagnosis Fibroids - Primary Leiomyoma of uterus, unspecified documented in this encounter Care Teams Charge Rn Relationship Specialty Start Date End Date Mya Garza MD PCP - General 08/08/[address] [place], [place] [address] documented as of this encounter
--- OUTSIDE RECORDS SUMMARY | 2022-04-04 01:15 | XMS_ITS | Encounter Summary ---
:1965 Author Organization [facility] [place] [address] Care Team Providers Name Role Phone Mya Garza MD Primary Care Provider Encounter Details Date Type Department Care Team Description 06/29/2014 Orders Only Obstetrics [place]cology [place] [facility] [place] Jose [facility] [place] [address] OBSTETRICS & GYNECOLOGY [phone] [place], [place] [address] (Wo rk) Social History Tobacco [...] on filedocumented in this encounter Care Teams Nightclub Manager Relationship Specialty Start Date End Date Mya Garza MD PCP - General 08/08/[address] [place] [address] documented as of this encounter
--- OUTSIDE RECORDS SUMMARY | 2022-04-04 01:15 | XMS_ITS | Encounter Summary ---
:1965 Author Organization [facility] [place] [address] Care Team Providers Name Role Phone Mya Garza MD Primary Care Provider Reason for Visit Reason Comments Fibroids lupron injection Encounter Details Date Type Department Care Team Description 07/02/2014 Office Visit Obstetrics and CLINIC, DR TYLER Hodges ( Primary Dx) [place] [address] Social History Tobacco Use Types Packs/Day Years Used Date Never Smoker Smokeless Tobacco: Never Used Alcohol Use Standard Drinks/Week Comments Not Asked 0 (1 standard drink = 0.6 oz pure alcoho l) Sex Assigned at Date Recorded Not on file documented as of this encounter Progress Notes Mookie Bowman LPN - 07/02/2014 11:26 AM EDT Encounter Diagnosis Name Primary? Fibroids Yes Depo Lupron Siteleft gluteus mi: 3.75 mg Ordering Provider:Sameer Galleogs MD Date of order:06/29/2014 Prior authorization obtained by pt supplied. Patient tolerated injection well and will return to clinic for next injection Jul 30, 2014. documented in this encounter Plan of Treatment Not on filedocumented as of this encounter Visit Diagnoses Diagnosis Fibroids - Primary Leiomyoma of uterus, unspecified documented in this encounter Administered Medications Inactive Administered Medications - up to 3 most recent administrations Medication Order MAR Action Action Date Dose Rate Site leuprolide (LUPRON) Given 09/24/2014 11:04 AM 3.75 mg Right Gluteal injection 3.75 mg EST 3.75 mg, Intramuscular, EVERY 28 DAYS, 4 doses, First dose on Sat07/02/14 at 1145, Last dose on Sat09/24/14 at 1145, Routine Given 08/27/2014 10:43 AM EST 3.75 mg Righ t Gluteal Given 07/02/2014 11:24 AM EDT 3.75 mg Left Gluteal documented in this encounter Care Teams Fish Hatchery Worker Relationship Specialty Start Date End Date Mya Garza MD PCP - General 08/08/[address] [place] [address] documented as of this encounter
--- OUTSIDE RECORDS SUMMARY | 2022-04-04 01:15 | XMS_ITS | Encounter Summary ---
:1965 [place] [address] Care Team Providers Name Role Phone Mya Garza MD Primary Care Provider Encounter Details Date Type Department Care Team Description 10/11/2014 Surgery Main Operating Room LYNN CervantesSCEARNEST, Erika Garcia MD HYSTERECTOMY, [facility] DR UTERUS<250GM, [facility] OBSTETRICS & ASSIST (W RVU 13.36) [facility] GYNECOLOGY [place] [id number] [place] [address] [phone] (Wo rk) Social History Tobacco Use Types Packs/Day Years Used Date Never Smoker Smokeless Tobacco: Never Used Alcohol Use Standard Drinks/Week Comments Not Asked 0 (1 standard drink = 0.6 oz pure alcoho l) Sex Assigned at Date Recorded Not on file documented as of this encounter Last Filed Vital Signs Vital Sign Reading Time Taken Comments Blood Pressure 119/68 10/11/2014 11:45 AM EST Pulse 67 10/11/2014 11:45 AM EST Temperature 37.2 ??C (99 ??F) 10/11/2014 11:17 AM EST Respiratory Rate 10 10/11/2014 11:45 AM EST Oxygen Saturation 100% 10/11/2014 11:45 AM EST Inhaled Oxygen Concentration - - Weight - - Height - - Body Mass Index - - documented in this encounter Discharge Summaries Barb Edwards MD - 10/12/2014 8:53 AM EST Images from the original note were not included. Discharge Summary Patient Name: Loraine Francois Patient Age: 49 y.o. Language: Central [place] Race: White Ethnicity: Not nor Admit date: 10/11/2014 Discharge date and time: 10/12/2014 Attending Physician: Denise Cervantes Discharge Physician: Denise Cervantes Follow-up Recommendations for Providers: -follow up with Dr. 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 Refills: 0 multivitamin Daka-Ro-XF-Min 27-0.4 mg Tab Commonly known as: THERAPEUTIC-M [...] AM Denise Cervantes MD Obstetrics and Gynecology [phone] Contact information: [facility] - After hours / weekends - and ask for the mustanger concrete wall grinder operator Call your doctor if you develop: --A [...] AM Denise Cervantes MD Obstetrics and Gynecology [phone] Discharge References/Attachments None Provider Contact Information: MYA GARZA MD [phone] documented in this encounter Discharge Instructions Patient InstructionsaBrb Edwards MD - 10/11/2014 11:27 AM EST Images from the original note were not included. PATIENT DISCHARGE INSTRUCTIONS Future Appointments Provider Department Dept Phone 11/22/2014 10:00 AM Denise Cervantes MD Obstetrics and Gynecology [phone] Contact information: [facility] - After hours / weekends - and ask for the mustanger concrete wall grinder operator Call your doctor if you develop: --A [...] hours. multivitamin Take by mouth daily. 0 Xeda-Pz-TG-Min (THERAPEUTIC-M) 27-0.4 mg Tablet Magnesium 250 mg [...] seen and discussed with LELAND Anaya Attending. 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 HISTORY - Admission Interval Note I have reviewed [...] of Care Goal: Plan of Care Review 10/12/14 1123 Plan of Care Review Plan of Care Outcome Status outcome achieved Progress improving Coping/Psychosocial Response Interventions Plan of Care Reviewed with patient OUTCOME EVALUATION NOTE: OUTCOME SUMMARY: Achieved, pt DC to home with . Pt verbalizes understanding regarding DC teaching for harleen nelson. Pt medicated with oxy prior to DC. Pt wheeled to [facility] by GISSELLE Dial. PLAN MOVING FORWARD: Dc [...] friend will provide Plan of Care - Ivett Reynoso RN - 10/12/2014 2:07 AM EST [...] with ADL's Supervision:oob with standby assist Surveillance: Shanthi,purposeful rounding CPG GOAL OUTCOME EVALUATION: Plan of [...] Operative Note Patient Name: Loraine Francois : [id number] MR#: [id number] Case Date: 10/11/2014 Surgeon: Surgeon(s) and Role: [...] right of the umbilicus. Utilizing a 10/11-mm Ethicon Optiview trocar, the laparoscope was attached to [...] locking 0 vicyl was utilized tore-approximate the atpdiade-tc-fxknrdhoz vagina with great care taken to take [...] sites, the fascia was reapproximated with a ilhhef-pn-cpqlf suture of 0 Vicryl; and a continuous [...] EST Brief Operative Note Patient Name: Loraine Francois : [id number] MR#: [id number] Case Date: 10/11/2014 Surgeon: Surgeon(s) and Role: [...] Organization Address City/State/[place] [address] CERNER MILLENNIUM (ABNORMAL) Basic [...] the following links into your internet browser. [email or web address]/DHnkdep [email or web address]://[email or web address] Specimen Anatomical Collection Method Collection Time Receive d Time (Source) Location / / Volume Laterality Blood specimen 10/12/2014 2:50 AM 015 2:53 (specimen) EST AM EST Resulting Agency Comment Spec In Lab Denise Melo MD CHEMISTRY ORDERABLES Performing Organization Address City/State/ZIP Code Phon e Number [address] CERNER MILLENNIUM (ABNORMAL) Hemogram [...] Melo MD HEMATOLOGY ORDERABLES Performing Organization Address City/State/ZIP Code Phon e Number [address] CERNER MILLENNIUM SCAN DOC: ECG (10/12/2014 12:00 AM EST) Narrative This result has an attachment that is no t available. Scanning Provider MEDIA MGR SCAN EXT ORDR/RSLT Surgical Pathology Report (10/11/2014 10:12 AM EST) Component Value Ref Test Analysis Performed At Patholo gist Range Method Time Signature Surgical C[facility]ER [facility] ? Provider: ?? CHRISTINA MELO, ??Pt. Name: ?? REINALDO MERCER, LORAINE ?DENISE ? Acc #: ?[id number] ?Pt. MRN: ?[id number] ? Col Date: ?? 5 ? /Sex: ?1965,(49 years),Female ? Rec Date: ?? 10/11/2014 ? LOC: ?[facility] ? SURGICAL PATHOLOGY ? ---Pathologic Diagnosis--- ? Uterus (hysterectomy): ?1. Multiple leiomyomas. ?2. Adenomyosis. ?3. Small benign endocervical polyp. ?4. Bilateral benign fallopian tube segments. ? CR-0 ? 10/12/14 ? [facility] ? 10/12/14 Verified by: ? Kyle RAMÍREZ, Juice Lo [...] cm in thicknes s. ? Myometrium: Homogeneous, hernandez-pink, averaging 1.5 cm . Sections reveal ? [...] Submitted: ? A - Uterus cervix ? [facility] ? Provider: ?? CHRISTINA MELO, ??Pt. Name: ?? REINALDO MERCER, LORAINE ?DENISE ? Acc #: ?[id number] ?Pt. MRN: ?[id number] ? Col Date: ?? 5 ? /Sex: ?1965,(49 years),Female ? Rec Date: ?? 10/11/2014 ? LOC: ?[facility] ? SURGICAL PATHOLOGY ? Clinical History: ? Menorrhagia, fibroids ? Clinical Diagnosis: ? Menorrhagia, fibroids Specimen (Source) Anatomical Collection Method Collection Time Re ceived Time Location / / Volume Laterality 10/11/2014 10:12 AM EST Denise Melo MD PATHOLOGY/CYTOLOGY ORDERMarium GAITAN Performing Organization Address City/[facility]/ZIP Code Phon e Number [address] CERCEDRIC OJEDAENNIUM Specimen to Pathology (surgical or derm) (10/11/2014 10:06 AM EST) Specimen Anatomical Collection Method Collection Time Receive d Time (Source) Location / / Volume Laterality AP Specimen 10/11/2014 10:06 10/11/2014 AM EST 10:06 AM EST Narrative CERNER MILLENNIUM - 10/11/2014 10:06 AM EST Specimen requisition ordered. ??Separate Pathology report to follow Denise Melo MD PATHOLOGY/CYTOLOGY ORDERMarium GAITAN Performing Organization Address City/State/[place] [address] CERCEDRIC OJEDAENNIUM documented in this encounter Visit Diagnoses Diagnosis Fibroids - Primary Leiomyoma of uterus, unspecified Menorrhagia Excessive or frequent menstruation documented in this encounter Administered Medications Inactive [...] Given 10/11/2014 3:44 PM EST 650 mg BUpivacaine (PF) (MARCAINE) 0.25 % (2.5 Given 10/11/2014 9:48 AM EST 37.5 mg mg/mL) injection ONCE PRN, Starting on Sat10/11/14 at 0948, Until Sat10/11/14 at 1307, Intra-Operative (Intra-Procedure), Routine docusate sodium (COLACE) capsule 100 mg Given [...] 10/12/2014 acetaminophen (TYLENOL) tablet 1,000 mg (COMPLETED) 06 (Given - Provider: Reema Aburto RN) 1,000 mg, Oral, ONCE, 1 dose, Sat 5 at 0645, Maximum dose of acetaminophen is 4000 mg from all sources in 24 hours., Day of Surgery (Day of Procedure), Routine clindamycin (CLEOCIN) 600mg in dextrose 5% 50mL (COMPLETED) 07 (Given - Provider: Juan Bhatt CRNA) 600 [...] mg (CANCELED) 813 (Given - Provider: Dax León, RONAN) 40 mg, Oral, DAILY, First dose on Sat at 0900, Until Discontinued, Routine gabapentin (NEURONTIN) capsule 600 mg (COMPLETED) 626 (Given - Provider: Reema Aburto, RONAN) 600 mg, Oral, ONCE, 1 dose, Sat10/11/14 [...] Reynoso RN) 223 (Given - Provider: Ivett Reynoso, RONAN)08 (Given - Provider: Dax León, RONAN) 15 mg, Intravenous, EVERY 6 HOURS SCHEDU LED, 3 doses, First dose on Sat10/11/14 at 1800, Last dose on Sat10/12/14 at 0600, Routine phenazopyridine (PYRIDIUM) tablet 200 mg (COMPLETED) 728 (Given - Provider: Reema Aburto, RN) 200 mg, Oral, ONCE, 1 dose, Sat10/11/14 at 0745, Routine scopolamine (TRANSDERM-SCOP) 1.5 mg patch 1 patch (COMPLETED ) 06 (Given - Provider: Reema Aburto, RN) 1 patch, Transdermal, ONCE, 1 dose, Sat10/11/14 at 0645, Day of Surgery (Day of Procedure), Routine sodium chloride 0.9 % flush 5 mL (CANCELED) 1345 (Not Given - Provider: Carmen Brar RN - Reason: See comment - Comment: IV fluids infusing)203 (Given - Provider: Ivett Reynoso RN) 0814 [...] 5 mg 1243 (Given - Provider: Rama Wilde, RN)1545 (Given - Provider: Carmen Brar, RONAN) 1055 (Given - Provider: Dax León RN) 5 mg, Oral, EVERY 3 HOURS PRN, Starting Sat10/11/14 at 1139, Until Sat10/12/14 at 1342, Pain, mild to moderate pain (1-6), May give an additional 5 mg in 30 minutes once if pain not relieved., Routine documented in this encounter Care Teams Watch Inspector Relationship Specialty Start Date End Date Mya Garza MD PCP - General 08/08/[address] [place] [address] documented as of this encounter
--- OUTSIDE RECORDS SUMMARY | 2022-04-04 01:15 | XMS_ITS | Encounter Summary ---
:1965 Author Organization [facility] [place] [address] Care Team Providers Name Role Phone Mya Garza MD Primary Care Provider Reason for Visit Reason Comments Injections Encounter Details Date Type Department Care Team Description 09/24/2014 Office Visit Obstetrics and CLINIC, DR TYLRE Veloz le iomyoma, [place] [facility] [place] [address] Social History Tobacco Use Types Packs/Day Years Used Date Never Smoker Smokeless Tobacco: Never Used Alcohol Use Standard Drinks/Week Comments Not Asked 0 (1 standard drink = 0.6 oz pure alcoho l) Sex Assigned at Date Recorded Not on file documented as of this encounter Progress Notes Emmy Rivera LPN - 09/24/2014 10:57 AM EST No diagnosis found. Depo Lupron Siteright gluteus mi: 3.75 mg Ordering Provider:Sameer Gallegos Date of order:06/29/14 Prior authorization obtained by Kulwant Newman pt brings own medication Patient tolerated injection well and will return to clinic for next injection, this is last injection prior to surgery. documented in this encounter Plan of Treatment Not on filedocumented as of this encounter Visit Diagnoses Diagnosis Uterine leiomyoma, unspecified location documented in this encounter Administered Medications Inactive [...] Gluteal documented in this encounter Care Teams Dairy Manufacturing Technologist Relationship Specialty Start Date End Date Mya Garza MD PCP - General 08/08/[address] [place] [address] documented as of this encounter
--- OUTSIDE RECORDS SUMMARY | 2022-04-04 01:15 | XMS_ITS | Encounter Summary ---
:1965 Author Organization [facility] Address [address] [place] [address] Care Team Providers Name Role Phone Mya Garza MD Primary Care Provider Reason for Visit Reason Onset Date Comments Advice Only 06/29/2014 Encounter Details Date Type Department Care Team Description 06/29/2014 Telephone Obstetrics and Gynecology Shirley Lorenzo Advice Only at [facility] [place] [address] OBSTETRICS & GYNECOLOGY [phone] [place], [place] [address] (Wo rk) Social History Tobacco Use Types Packs/Day Years Used Date Never Smoker Smokeless Tobacco: Never Used Alcohol Use Standard Drinks/Week Comments Not Asked 0 (1 standard drink = 0.6 oz pure alcoho l) Sex Assigned at Date Recorded Not on file documented as of this encounter Miscellaneous Notes Telephone Encounter - Shirley Cervantes MD - 06/29/2014 11:47 AM EDT The patient called stating that she would like to proceed with a hysterectomy. She has fibroids, has been anemic and has decided to proceed with lupron (3.75 mg IM q month until surgery). She knows she will need prior authorization for the lupron and will arrange to have it injected here. Kulwant Newman asked to arrange. She was counseled that she should let me know when she has had her first injection to time surgery. Will plan first injection the end of June for a end of September surgery. She was advised of her CBC results here and low iron levels and asked to take iron 2x a day with a multivitamin with iron. Endometrial bx benign. I asked her to sign a release with the secretaries for her last laparoscopic surgery and send a copy here for our review. MBP documented in this encounter Plan of Treatment Not on filedocumented as of this encounter Visit Diagnoses Not on filedocumented in this encounter Care Teams Bight Maker Relationship Specialty Start Date End Date Mya Garza MD PCP - General 08/08/10 [address] [place] [address] documented as of this encounter
--- OUTSIDE RECORDS SUMMARY | 2022-04-04 01:15 | XMS_ITS | Encounter Summary ---
:1965 Author Organization [facility] [place] [address] Care Team Providers Name Role Phone Mya Garza MD Primary Care Provider Reason for Visit Reason Comments Pre-op Exam Encounter Details Date Type Department Care Team Description 10/04/2014 Office Visit Obstetrics and Sameer Gallegos, Iron de ficiency anemia due to chronic blood loss (Primary Dx); [place] at [facility] [place]ise Garcia MD Intramural leiomyoma of uterus [facility] [address], [place] OBSTETRICS & [id number] GYNECOLOGY [phone] [place], [place] [address] (Wo rk) Social History Tobacco Use Types Packs/Day Years Used Date Never Smoker Smokeless Tobacco: Never Used Alcohol Use Standard Drinks/Week Comments Not Asked 0 (1 standard drink = 0.6 oz pure alcoho l) Sex Assigned at Date Recorded Not on file documented as of this encounter Last Filed Vital Signs Vital Sign Reading Time Taken Comments Blood Pressure 124/80 10/04/2014 11:00 AM EST Pulse 80 10/04/2014 11:00 AM EST Temperature 36.8 ??C (98.3 ??F) 10/04/2014 11:00 AM EST Respiratory Rate 16 10/04/2014 11:00 AM EST Oxygen Saturation - - Inhaled Oxygen Concentration - - Weight 74.4 kg (164 lb) 10/04/2014 11:00 AM EST Height 165.1 cm (5' 5) 10/04/2014 11:00 AM EST Body Mass Index 27.29 10/04/2014 11:00 AM EST documented in this encounter Progress Notes Denise Cervantes MD - 10/04/2014 11:15 AM EST . REPRODUCTIVE MEDICINE PRE-OP HISTORY AND PHYSICAL [facility] Denise Gallegos MD IVF/ART Manager Programs MD Anika Biggs MD Elizabeth Todd, ARNP Date of Visit: 10/04/2014 Planned Surgery Date: 10/11/2014 Surgery Planned: robotic assisted endoscopic total hysterectomy, removal remnant fallopian tubes, possible lysis of adhesions, possible oophorectomy (ies) Indications/Pre-op Diagnosis: Symptomatic fibroid, menorrhagia, pelvic pain HISTORY OF PRESENT ILLNESS: Ms. Francois is a 49 y.o. para 2 (C/S x 2) woman who presents for her preoperative examination. Patient with history of a left sided myoma with extension into the broad ligament, menorrhagia and LLQ pain Please see prior encounter notes for more detail. Sexually active?: Yes Last PAP smear: 2-3 years ago with PCP (not on chart patient reports normal and denies any history of abnormal pap tests) Past anesthesia problems?: None reported Past Medical History Diagnosis Date ??? Anemia [...] ??? Tonsillectomy 7 years of age History Social History ??? Marital Status: Spouse Name: N/A Number of Children: N/A ??? Years of Education: N/A Occupational History ??? Not on file. Social History Main Topics ??? Smoking status: Never Smoker ??? Smokeless tobacco: Never Used ??? Alcohol Use: Not on file ??? Drug Use: No ??? Sexual Activity: Partners: Male Other Topics Concern ??? Not on file Social History Narrative x 25 years. Patient works in her Father's business for [employer]. 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 Alcohol intake rarely 2-4 times a year. Never smoked non smoker. 2 children ages 19, 17- one in college one in senior in high school. Allergies Allergen Reactions ??? Cefaclor Hives Outpatient Prescriptions Marked as Taking for the 10/04/14 encounter (Office Visit) with Denise Cervantes MD Medication Sig Dispense Refill ??? multivitamin Runo-Ch-JT-Min (THERAPEUTIC-M) 27-0.4 mg Tablet Take by mouth daily. ??? Magnesium 250 mg Tablet Take by mouth daily. ??? ferrous sulfate 325 mg (65 mg iron) Tablet Take 325 mg by mouth daily (with breakfast). ??? IRON/DOCUSATE SODIUM (FATOU-SEQUELS ORAL) Take by mouth nightly. ??? ibuprofen (ADVIL) 200 mg tablet Current Facility-Administered Medications for the 10/04/14 encounter (Office Visit) with Denise Cervantes MD Medication Dose Route Frequency Provider Last Rate Last Dose ??? leuprolide (LUPRON) injection 3.75 mg 3.75 mg Intramuscular Q28 Days Denise Cervantes MD 3.75 mg at 09/24/14 1104 Blood pressure 124/80, pulse 80, temperature 36.8 ??C (98.3 ??F), temperature source Oral, resp. rate 16, height 165.1 cm (5' 5), weight 74.39 kg (164 lb). EXAM: General: alert/oriented x 3, NAD, cooperative ENT: No lymphadenopathy, pharynx normal and normal dentition Neck: No lymphadenopathy, without thyromegaly COR: RRR without murmur Lungs: Clear to aucultation Abdomen: Soft, without hepato-splenomegally, non-tender without masses, prior pfannenstiel well healed in hair line Pelvic: ~ 14 week sized fibroid uterus with anterior to left sided firm mass consistent with a fibroid extending into the left board ligament, no nodularity mobile Rectal: deferred to operating room. Extremities: no calf tenderness, without swelling IMPRESSION: Ms. Francois is a 49 y.o. para 2 (C/S x 2) woman who presents for her preoperative examination. Patient with history of a left sided myoma with extension into the broad ligament, menorrhagia and LLQ pain. Fibroid uterus on ultrasound. I had a 30 minute face to face conversation with this patient, 25 minutes spent in face to face consultation. We reviewed the nature and purpose of the surgery, the possible medical alternatives, and the hoped for benefits. We discussed possible complications of surgery, to include, but not be limited to, injury to the bowel, bladder, blood vessel, nerve, ureter, and other pelvic and abdominal structures. We reviewed the risk of bleeding and the potential complications, infectious and otherwise of transfusion. Given her two prior c/s we reviewed the risk of ureteral and bladder injury, potential outcomes, cystoscopy and possible risk of bladder and renal injury. She previously was transfused 4 units at the time of a delayed post hemorrhage and had 4 unites of blood and an EUA (op reports reviewed) not a repeat laparotomy-will check T+S. We reviewed the risk of prolonged hospitalization, prolonged recovery, permenant disability, reoperation and the rare by real possibility of . She were given an opportunity to ask questions and all of her questions were answered to her satisfaction. She understands that a hysterectomy will render her infertile. We reviewed the consent and she signed it after careful review in my presence. In terms of ovaries she would like me to use my judgement at the time of surgery. She prefers to keep one if not both but if they appear abnormal and or densely adherent she has elected to have them removed (especially the left due to persistent LLQ pain). She is accepting of HRT. She was counseled of the risk of ovarian cancer and benign disease and risk of repeat surgery with ovarian conservation PLAN: ??? Anesthesia preference: per anesthesia ??? Medications and preparations reviewed Discussed: Discontinuation of all herbal preparations, vitamin E 7-10 days preop ASA, NSAIDSherbal ?? (x) NPO after MN XX Clear liquids 24 hours prior to surgery. Amp and gent given allergies CBC T+S DENISE GALLEGOS MD documented in this encounter Plan of Treatment Not on filedocumented as of this encounter Procedures Procedure Name Priority Date/Time Associated Diagnosis Comme nts HEMOGRAM Routine 10/04/2014 12:41 PM Iron deficiency Resul ts for this EST anemia due to procedure are in chronic blood loss the resul ts section. DIFFERENTIAL, Routine 10/04/2014 12:41 PM Iron deficiency Resu lts for this AUTOMATED EST anemia due to procedure are in chronic blood loss the resul ts section. ABO/RH TYPING Routine 10/04/2014 12:41 PM Results for this EST procedure are i n the results section. CBC (WITH DIFF) Routine 10/04/2014 12:41 PM Iron deficiency EST anemia due to chronic blood loss ANTIBODY SCREEN Routine 10/04/2014 12:41 PM Resul ts for this EST procedure are i n the results section. documented in this encounter Results Antibody screen (10/04/2014 12:41 PM EST) Analysis Performed At [facility] Time Signature Ab Screen Negative [facility] Expires at [id number] [facility] 2358 on: [facility] Specimen Anatomical Collection Method Collection Time Receive d Time (Source) Location / / Volume Laterality Blood specimen Venous Draw / 10/04/2014 12:41 10/04/19 15 1:26 (specimen) Unknown PM EST PM EST Resulting Agency Comment Spec In Lab Denise Gallegos MD BLOOD BANK ORDERABLES Performing Organization Address City/State/ZIP Code Phon e Number [address] [facility] ABO/Rh Typing (10/04/2014 12:41 PM EST) P athologist Signature ABORh Type O Pos [facility] Specimen Anatomical Collection Method Collection Time Receive d Time (Source) Location / / Volume Laterality Blood specimen Venous Draw / 10/04/2014 12:41 10/04/19 15 1:26 (specimen) Unknown PM EST PM EST Resulting Agency Comment Spec In Lab Denise Gallegos MD BLOOD BANK ORDERABLES Performing Organization Address City/[facility]/ZIP Code Phon e Number [address] [facility] Differential, Automated (10/04/2014 12:41 PM EST) athologist Signature Neutrophils % 67.8 % [facility] Neutr Abs (ANC) 4.82 1.50 - CERNER 6.30 MILLENNIUM x10(3)/mcL Lymphocytes % 24.2 % C[facility]ER MILLENNIUM Lymphocytes Abs 1.7 1.0 - 3.6 CERNER x10(3)/mcL [facility] Monocytes % 6.8 % [facility] MILLENNIUM Monocyte Abs 0.5 0.2 - 1.0 CERNER x10(3)/mcL [facility] Eosinophils % 0.7 % C[facility]ILLENNIUM Eosinophils Abs 0.0 0.0 - 0.5 CERNER x10(3)/mcL [facility] Basophils % 0.4 % C[facility]ER MILLENNIUM Basophils Abs 0.0 0.0 - 0.2 CERNER x10(3)/mcL [facility] Immature Gran % 0.10 % CERNER MILLENNIUM Comment: Immature granulocytes(IG's)percentage an d absolute count will include metamyelocytes, myelocytes, and promyelo cytes. Blood smears from CBCs yielding IG's will be scanned manually for concor dance. If this scan disagrees with the automated IG or if promyelocytes are not ed, a manual differential will be performed. Juliet Gran Abs 0.01 0.00 - 0.05 x10(3)/mcL CER NER MILLENNIUM Specimen Anatomical Collection Method Collection Time Receive d Time (Source) Location / / Volume Laterality Blood specimen 10/04/2014 12:41 5 1:42 (specimen) PM EST PM EST Resulting Agency Comment Spec In Lab Denise Gallegos MD HEMATOLOGY ORDERABLES Performing Organization Address City/State/ZIP [place] [address] [facility]ILLENNIUM Hemogram (10/04/2014 12:41 PM EST) P athologist Signature WBC 7.1 4.0 - 10.0 CERNER x10(3)/mcL [facility] RBC 4.80 3.93 - 5.22 CERNER x10(6)/mcL [facility]ILLENNIUM Hemoglobin 14.2 11.2 - 15.7 CERNER gm/dL MILLENNIUM Hematocrit 41.8 34.0 - 45.0 CERNER % MILLENNIUM MCV 87.1 79.0 - 94.0 CERNER fL MILLENNIUM MCH 29.6 26.6 - 32.2 CERNER pg MILLENNIUM MCHC 34.0 32.0 - 36.5 CERNER gm/dL MILLENNIUM Platelets 268 145 - 370 CERNER x10(3)/mcL [facility]ENNIUM RDWSD 42.9 35.0 - 46.0 CERNER fL [facility]ENNIUM RDWCV 13.6 10.9 - 14.4 CERNER % MILLENNIUM MPV 11.3 9.0 - 12.0 CERNER fL [facility] Specimen Anatomical Collection Method Collection Time Receive d Time (Source) Location / / Volume Laterality Blood specimen 10/04/2014 12:41 5 1:42 (specimen) PM EST PM EST Resulting Agency Comment Spec In Lab Denise Gallegos MD HEMATOLOGY ORDERABLES Performing Organization Address City/State/[place] [address] [facility] documented in this encounter Visit Diagnoses Diagnosis Iron deficiency anemia due to chronic bl ood loss - Primary Iron deficiency anemia secondary to bloo d loss (chronic) Intramural leiomyoma of uterus documented in this encounter Care Teams Creative Services Writer Relationship Specialty Start Date End Date Mya Garza MD PCP - General 08/08/[address] [place] [address] documented as of this encounter
[2022-04-04 12:51] LABS: HCT 43.2 % (36.0-46.0); HGB 14.6 g/dL (11.2-15.7); MCH 30.3 pg (27.0-33.0); MCHC 33.8 % (32.0-36.0); MCV 90 fL (80-95); MPV 11.8 fL (8.0-11.0); Platelet Count 253 10^3/uL (130-400); RBC 4.82 10^6/uL (3.93-5.22); RDW 12.4 % (11.7-14.6); RDW-SD 40.5 fL; WBC 5.25 10^3/uL (4.4-10.8)
[2022-04-04 13:12] LABS: Iron 106 ug/dL (50-170)
[2022-04-04 13:35] LABS: ALT 24 U/L (14-59); AST 28 U/L (15-37); Albumin 4.3 g/dL (3.4-5.0); Alkaline Phosphatase 82 U/L (46-116); Anion Gap 9.3 mmol/L (3-11); BUN 10 mg/dL (7-18); Bilirubin, Total 0.7 mg/dL (0.2-1.0); CO2 29.7 mmol/L (21.0-32.0); CREATININE 0.7 mg/dL (0.55-1.02); Calcium 9.2 mg/dL (8.5-10.1); Calculated LDL 103 mg/dL (<100); Chloride 103 mmol/L (98-107); Cholesterol 193 mg/dL (<200); Glucose 85 mg/dL (74-106); HDL Cholesterol 69 mg/dL (40-60); Potassium 4.3 mmol/L (3.5-5.1); Sodium 142 mmol/L (136-145); TSH (W/Ref FT4) 1.31 uIU/mL (0.36-3.74); Total Protein 7.3 g/dL (6.4-8.2); Triglyceride 107 mg/dL (<150)
== END 2022-04-04 01:11 | disposition home or self-care (01) ==
LOC: LOS 01:10
PROVIDERS: PCP Family Medicine; Visit Provider Family Medicine
DX: Z00.00 Encounter for general adult medical examination without abnormal findings (principal)
CPT/HCPCS: 36415; 80053; 80061; 85027; 83540; 84443

== ENCOUNTER 2023-01-24 01:37 | Outpatient (CLI) | payer BC, SELFPAY | END 2023-01-24 01:57 | LOC: DI 01:37 | PROVIDERS: PCP Family Medicine; Visit Provider Family Medicine | DX: Z12.31 Encounter for screening mammogram for malignant neoplasm of breast (principal) | CPT/HCPCS: 77063; 77067 ==

== ENCOUNTER → 2024-03-18 01:38 | Outpatient (CLI) | payer BC, SELFPAY ==
[2024-03-18] MEDS: Omnipaque 350 MG/ML 500 ML BTL-Imaging package 100 ML IJ (11:19)
[2024-03-18] MEDS: Normal Saline - Diluent 50 ML VIAL IJ (11:21)
[2024-03-18] MEDS: Normal Saline Flush 10 ML SYR IVP (11:26)
--- NOTE | 2024-03-18 11:29 | DI.CT_ITS ---
Exam(s) CT ABDOMEN PELVIS W EXAM: CT ABDOMEN PELVIS W CLINICAL HISTORY: LLQ pain R19.04 LLQ ABD SWELLING R10.32 LLQ PAIN. TECHNIQUE: Imaging Protocol: Axial computed tomography images with coronal and sagittal reformatted images were created and reviewed CONTRAST MATERIAL: Intravenous: Omnipaque-350 100cc Oral: Yes. Oral contrast was also administered for bowel opacification. COMPARISON: No exams were available for comparison FINDINGS: VISUALIZED LUNG BASES: No nodules nor pleural effusions evident. ABDOMEN: There is no ascites. LIVER: There are no focal hepatic lesions evident. No dilated intrahepatic ducts. GALLBLADDER/BILIARY: No obvious gallbladder pathology. CBD is not dilated. PANCREAS: No evidence of pancreatic mass nor dilatation of the pancreatic duct. SPLEEN: Spleen is not enlarged. No obvious intrasplenic lesions. Splenic and portal veins are paten t. ADRENALS: There are no significant adrenal masses. KIDNEYS:No cysts evident. No solid renal masses. No calculi nor hydronephrosis.. ABDOMINAL AORTA: Abdominal aorta is not enlarged. LYMPH NODES:There is no retroperitoneal nor paraaortic adenopathy. ABDOMINAL WALL: No evidence of significant anterior abdominal wall nor inguinal hernia. GI: There is no evidence of bowel obstruction, free air, nor abscess. Moderate increased amount of fecal material noted throughout the colon. PELVIS: GI: No evidence of appendicitis.No evidence of significant sigmoid diverticular disease. LYMPH NODES: There is no intrapelvic nor inguinal adenopathy. REPRODUCTIVE: The uterus is surgically absent. There are no abnormal adnexal masses nor free fluid i n the pelvis. URINARY BLADDER: No calculi nor obvious masses evident OSSEOUS: No fractures and no significant osseous lesions. IMPRESSION: 1. No significant acute findings in the abdomen pelvis. 2. There is moderate increased amount of fecal material noted throughout the colon. Correlation any clinical signs of constipation recommended. No evidence of diverticulitis nor appendicitis. 3. No evidence of bowel obstruction nor ascites. RADIATION DOSE DELIVERED: 932.07mGy.cm Total DLP DATA REPOSITORY: All CT scans at this facility are submitted to the National Radiology Data Registry (NRDR) Dose Index Registry (DIR) with the [employer] (A[employer]). RADIATION OPTIMIZATION: All CT scans at this facility use at least one of these dose optimization te chniques: automated exposure control; mA and/or kV adjustment per patient size (includes targeted exa ms where dose is matched to clinical indication); or iterative reconstruction.
== END ==
PROVIDERS: PCP Family Medicine; Visit Provider Family Medicine
DX: R19.04 Left lower quadrant abdominal swelling, mass and lump (principal); R10.32 Left lower quadrant pain
CPT/HCPCS: 74177